=== PATIENT | female | born 1985 | race Hispanic/Latino ===

== ENCOUNTER 2023-02-04 05:29 | Emergency (ER) | payer MEDICAID ==
[~2023-02-04] VITALS: Ht 162.6 cm; Wt 88.9 kg
[2023-02-04 05:55] VITALS: BP 158/74
[2023-02-04] MEDS ORDERED: KETOROLAC 60 MG VIAL (30MG/ML) IM ONE (06:00)
== END 2023-02-04 06:35 | disposition home or self-care (01) ==
LOC: EDH 05:29
DX: H92.03 Otalgia, bilateral (principal); F41.9 Anxiety disorder, unspecified; M19.90 Unspecified osteoarthritis, unspecified site; I11.0 Hypertensive heart disease with heart failure; I50.9 Heart failure, unspecified; E11.9 Type 2 diabetes mellitus without complications; E78.00 Pure hypercholesterolemia, unspecified; Z91.040 Latex allergy status
CPT/HCPCS: 99283; 96372; J1885

== ENCOUNTER 2023-02-24 15:25 | Emergency (ER) | payer MEDICAID ==
[~2023-02-24] VITALS: Ht 162.6 cm; Wt 86.2 kg
[2023-02-24 16:23] LABS: BASOPHILS % (AUTO) 0.4 % (0.0-5.0); EOSINOPHILS % (AUTO) 1.6 % (0.0-8.0); HEMATOCRIT 32.2 % (36-48); LYMPHOCYTES % (AUTO) 23.5 % (21.0-51.0); MEAN CORPUSCULAR HEMOGLOBIN 26.2 pg (27.0-33.0); MEAN CORPUSCULAR HGB CONC 31.7 g/dL (32.0-36.0); MEAN CORPUSCULAR VOLUME 82.8 fL (79-99); MONOCYTES % (AUTO) 4.9 % (3.0-13.0); NEUTROPHILS % (AUTO) 68.5 % (40.0-77.0); PLATELET COUNT (AUTO) 412 K/uL (130-400); RED BLOOD CELL COUNT(AUTO) 3.89 MIL/uL (4.00-5.50); RED CELL DISTRIBUTION WIDTH 13.9 % (11.0-15.5); WHITE BLOOD COUNT (AUTO) 10.6 K/uL (4.8-10.8)
[2023-02-24 16:35] LABS: INR 0.93 (0.85-1.15); PROTHROMBIN TIME 9.5 SEC (9.6-11.6)
[2023-02-24 16:36] LABS: CREATININE 1.9 mg/dL (0.5-1.5); PARTIAL THROMBOPLASTIN TIME 25.5 SEC (26.3-35.5); POTASSIUM 5.3 mmol/L (3.5-5.1)
[2023-02-24 16:41] LABS: ALBUMIN 1.9 g/dL (3.5-5.0); TOTAL PROTEIN, SERUM 6.8 g/dL (6.0-8.3)
[2023-02-24] MEDS ORDERED: 0.9%NACL 1000ML 1,000 ML IV ONE ×2 (17:00→20:30)
[2023-02-24] MEDS ORDERED: INSULIN HUMULIN R 100 UNIT/ML 3ML IV ONE (17:00)
[2023-02-24 17:26] LABS: ERYTHROCYTE SEDIMENTATION RATE 118 MM/HR (0-20)
[2023-02-24 21:23] VITALS: BP 163/79
[2023-02-24 22:00] LABS: CREATININE 1.8 mg/dL (0.5-1.5); POTASSIUM 4.2 mmol/L (3.5-5.1)
[2023-02-24] MEDS ORDERED: CLIN-141 PO (22:12)
== END 2023-02-24 22:34 | disposition home or self-care (01) ==
LOC: EDH 15:25
DX: E86.0 Dehydration (principal); E11.65 Type 2 diabetes mellitus with hyperglycemia; S91.302A Unspecified open wound, left foot, initial encounter; F41.9 Anxiety disorder, unspecified; I11.0 Hypertensive heart disease with heart failure; I50.9 Heart failure, unspecified; E78.00 Pure hypercholesterolemia, unspecified; M19.90 Unspecified osteoarthritis, unspecified site; Z91.040 Latex allergy status; X58.XXXA Exposure to other specified factors, initial encounter; Y93.89 Activity, other specified; Y92.89 Other specified places as the place of occurrence of the external cause; Y99.8 Other external cause status
CPT/HCPCS: 99285; 96374; 93971; 96361; 82550; 84484; 80053; 85025; 85610; 85730; 85651; 87040 ×2; 82948; 83605; 36415; 93005; 80048; J1815; J7030 ×2; 87088

== ENCOUNTER 2024-04-08 11:57 | Emergency (ER) | payer MEDICAID ==
[~2024-04-08] VITALS: Ht 162.6 cm; Wt 72.6 kg
[~2024-04-08 11:57] MED LIST: CLIN-141 PO
[2024-04-08 11:59] VITALS: BP 150/83; PULSE 92; RESP 18
== END 2024-04-08 14:22 | disposition left against medical advice (07) ==
LOC: EDH 11:57
DX: E16.2 Hypoglycemia, unspecified (principal); Z53.21 Procedure and treatment not carried out due to patient leaving prior to being seen by health care provider
CPT/HCPCS: 99281

== ENCOUNTER 2024-04-09 21:48 | Inpatient (IN) | payer MEDICAID ==
[~2024-04-09] VITALS: Ht 162.6 cm; Wt 69.7 kg
[2024-04-09 22:26] LABS: BASOPHILS # (AUTO) 0.04 K/uL (0.00-0.20); BASOPHILS % (AUTO) 0.4 % (0.0-5.0); EOSINOPHILS # (AUTO) 0.24 K/uL (0.00-0.70); EOSINOPHILS % (AUTO) 2.2 % (0.0-8.0); HEMATOCRIT 31.8 % (36-48); IMMATURE GRANULOCYTE ABSOLUTE 0.05 K/uL (0-1); LYMPHOCYTES # (AUTO) 1.4 K/uL (1.0-4.8); LYMPHOCYTES % (AUTO) 12.5 % (21.0-51.0); MEAN CORPUSCULAR HEMOGLOBIN 26.6 pg (27.0-33.0); MEAN CORPUSCULAR HGB CONC 31.8 g/dL (32.0-36.0); MEAN CORPUSCULAR VOLUME 83.9 fL (79-99); MONOCYTES # (AUTO) 0.5 K/uL (0.1-1.0); MONOCYTES % (AUTO) 4.3 % (3.0-13.0); NEUTROPHILS # (AUTO) 8.7 K/uL (1.8-7.7); NEUTROPHILS % (AUTO) 80.1 % (40.0-77.0); PLATELET COUNT (AUTO) 346 K/uL (130-400); RED BLOOD CELL COUNT(AUTO) 3.79 MIL/uL (4.00-5.50); RED CELL DISTRIBUTION WIDTH 17.1 % (11.0-15.5); WHITE BLOOD COUNT (AUTO) 10.8 K/uL (4.8-10.8)
[2024-04-09 22:56] LABS: B-TYPE NATRIURETIC PEPTIDE 372 pg/mL (0-100)
[2024-04-09 23:22] LABS: ALBUMIN 1.6 g/dL (3.5-5.0); BILIRUBIN,DIRECT 0.1 mg/dL (0.0-0.3); BILIRUBIN,TOTAL 0.1 mg/dL (0.2-1.0); CREATININE 3.3 mg/dL (0.5-1.0); POTASSIUM 4.1 mmol/L (3.5-5.1); TOTAL PROTEIN, SERUM 5.7 g/dL (6.0-8.3)
[2024-04-10] MEDS ORDERED: DEXTROSE 50%-WATER 50 ML DISP.SYRIN IV PRN (01:30)
[2024-04-10] MEDS ORDERED: GLUCAGON 1MG KIT 1 MG ML IM PRN (01:30)
[2024-04-10] MEDS ORDERED: ACETAMINOPHEN 325 MG TAB PO PRN (01:30)
[2024-04-10] MEDS: ONDANSETRON 4MG INJ IVP ONE (01:37)
[2024-04-10] MEDS: PANTOPRAZOLE 40 MG/VIAL IVP ONE (01:37)
[2024-04-10] MEDS: 0.9%NACL 1000ML 1,000 ML IV ONE (01:37)
[2024-04-10] MEDS: MORPHINE 4 MG SYG IVP ONE (01:38)
[2024-04-10 03:18] LABS: BASOPHILS # (AUTO) 0.05 K/uL (0.00-0.20); BASOPHILS % (AUTO) 0.4 % (0.0-5.0); EOSINOPHILS % (AUTO) 2.6 % (0.0-8.0); HEMATOCRIT 32.3 % (36-48); IMMATURE GRANULOCYTE ABSOLUTE 0.08 K/uL (0-1); LYMPHOCYTES # (AUTO) 2.1 K/uL (1.0-4.8); LYMPHOCYTES % (AUTO) 18.4 % (21.0-51.0); MEAN CORPUSCULAR HEMOGLOBIN 27.4 pg (27.0-33.0); MEAN CORPUSCULAR HGB CONC 32.5 g/dL (32.0-36.0); MEAN CORPUSCULAR VOLUME 84.3 fL (79-99); MONOCYTES # (AUTO) 0.6 K/uL (0.1-1.0); NEUTROPHILS # (AUTO) 8.4 K/uL (1.8-7.7); NEUTROPHILS % (AUTO) 72.9 % (40.0-77.0); PLATELET COUNT (AUTO) 331 K/uL (130-400); RED BLOOD CELL COUNT(AUTO) 3.83 MIL/uL (4.00-5.50); WHITE BLOOD COUNT (AUTO) 11.5 K/uL (4.8-10.8)
[2024-04-10 03:38] LABS: ALBUMIN 1.6 g/dL (3.5-5.0); BILIRUBIN,TOTAL 0.1 mg/dL (0.2-1.0); CREATININE 3.2 mg/dL (0.5-1.0); MAGNESIUM 1.7 mg/dL (1.80-2.40); POTASSIUM 4.2 mmol/L (3.5-5.1); TOTAL PROTEIN, SERUM 5.6 g/dL (6.0-8.3)
[2024-04-10 04:48] LABS: ERYTHROCYTE SEDIMENTATION RATE 70 MM/HR (0-20)
[2024-04-10 05:32] LABS: APPEARANCE,URINE CLEAR (CLEAR); BILIRUBIN,URINE NEGATIVE (NEGATIVE); COLOR,URINE COLORLESS (YELLOW); GLUCOSE, URINE (UA) >=1000 mg/dL (NEGATIVE); KETONES,URINE NEGATIVE (NEGATIVE); LEUKOCYTE ESTERASE ,URINE NEGATIVE Leu/uL (NEGATIVE); NITRATE,URINE NEGATIVE (NEGATIVE); OCCULT BLOOD,URINE MODERATE (NEGATIVE); PH,URINE 6.5 (5.0-8.0); PROTEIN,URINE 300 mg/dL (NEGATIVE); UROBILINOGEN,URINE 0.2 mg/dL (0.2-1.0)
[2024-04-10 05:49] LABS: ADD UA MICROSCOPIC YES
[2024-04-10 05:52] LABS: MUCUS,URINE RARE LPF (None Seen); SQUAMOUS EPITHELIAL CELL,UR RARE /HPF (0-2)
[2024-04-10 05:55] VITALS: BP 192/91; PULSE 89; RESP 18
[2024-04-10 06:16] LABS: HEMOGLOBIN A1C 7.8 % (4.0-6.0)
[2024-04-10] MEDS: INSULIN HUMULIN R 100 UNIT/ML 3ML SQ SCH (07:30)
[2024-04-10 08:00] VITALS: BP 187/85; PULSE 84; RESP 18
[2024-04-10] MEDS ORDERED: HYDR-4060 PO ×2 (08:07)
[2024-04-10] MEDS ORDERED: ATOR40TA71 PO ×2 (08:07)
[2024-04-10] MEDS ORDERED: METO10TA3 PO ×2 (08:07)
[2024-04-10] MEDS ORDERED: CLON1TAB12 PO ×2 (08:07)
[2024-04-10] MEDS ORDERED: SODI650T PO ×2 (08:07)
[2024-04-10] MEDS ORDERED: ARIP10TA54 PO ×2 (08:07)
[2024-04-10] MEDS ORDERED: METO-408 PO ×2 (08:07)
[2024-04-10] MEDS ORDERED: CYCL-309 PO ×2 (08:07)
[2024-04-10] MEDS ORDERED: FLUO40CA49 PO ×2 (08:07)
[2024-04-10] MEDS ORDERED: CEFTRIAXONE 1G VIAL 1 GM in 0.9%NACL 50ML 50 ML IV SCH (09:00)
[2024-04-10] MEDS: CEFTRIAXONE 1G VIAL IVPB SCH (09:24)
[2024-04-10] MEDS: FAMOTIDINE 20MG VIAL IV SCH (09:24)
[2024-04-10 11:29] LABS: AMPHET/METH SCREEN,URINE NEGATIVE (NEGATIVE); BARBITURATE SCREEN, URINE NEGATIVE (NEGATIVE); BENZODIAZEPINES SCREEN,URINE NEGATIVE (NEGATIVE); CANNABINOID SCREEN,URINE NEGATIVE (NEGATIVE); COCAINE SCREEN,URINE NEGATIVE (NEGATIVE); OPIATE SCREEN,URINE NEGATIVE (NEGATIVE); PHENCYCLIDINE SCREEN,URINE NEGATIVE (NEGATIVE)
[2024-04-10 11:47] LABS: PROTEIN,URINE RANDOM 534.1 mg/dL (0-11.9)
[2024-04-10 12:00] VITALS: BP 203/91; PULSE 85; RESP 18
[2024-04-10] MEDS: METOPROLOL TARTRATE 25 MG TAB PO ONE (13:08)
[2024-04-10] MEDS: HYDRALAZINE 20MG/ML VIAL IV PRN (13:27)
[2024-04-10] MEDS: ACETAMINOPHEN 325 MG TAB PO PRN (15:19)
[2024-04-10 16:00] VITALS: BP 145/65; PULSE 77; RESP 18
[2024-04-10 19:00] VITALS: BP 173/80; PULSE 76; RESP 18
[2024-04-10] MEDS: METOPROLOL TARTRATE 25 MG TAB PO SCH (20:02)
[2024-04-10] MEDS: HYDROMORPHONE 0.5 MG SYG (0.5MG/0.5ML) IVP ONE (21:53)
[2024-04-11] VITALS: BP 166/77; PULSE 69; RESP 18
[2024-04-11 04:00] VITALS: BP 197/84; PULSE 70; RESP 18
[2024-04-11] MEDS: ONDANSETRON 4MG INJ IV PRN (04:32)
[2024-04-11 04:46] LABS: BASOPHILS # (AUTO) 0.04 K/uL (0.00-0.20); BASOPHILS % (AUTO) 0.4 % (0.0-5.0); EOSINOPHILS # (AUTO) 0.51 K/uL (0.00-0.70); EOSINOPHILS % (AUTO) 5.6 % (0.0-8.0); HEMATOCRIT 33.3 % (36-48); IMMATURE GRANULOCYTE ABSOLUTE 0.05 K/uL (0-1); LYMPHOCYTES # (AUTO) 1.8 K/uL (1.0-4.8); MEAN CORPUSCULAR HEMOGLOBIN 27.3 pg (27.0-33.0); MEAN CORPUSCULAR HGB CONC 31.5 g/dL (32.0-36.0); MEAN CORPUSCULAR VOLUME 86.5 fL (79-99); MONOCYTES # (AUTO) 0.4 K/uL (0.1-1.0); MONOCYTES % (AUTO) 4.4 % (3.0-13.0); NEUTROPHILS # (AUTO) 6.2 K/uL (1.8-7.7); PLATELET COUNT (AUTO) 347 K/uL (130-400); RED BLOOD CELL COUNT(AUTO) 3.85 MIL/uL (4.00-5.50); RED CELL DISTRIBUTION WIDTH 16.9 % (11.0-15.5)
[2024-04-11 05:26] LABS: % IRON SATURATION 35.4 % (22-44)
[2024-04-11 05:28] LABS: PHOSPHORUS 4.5 mg/dL (2.5-4.9); POTASSIUM 4.2 mmol/L (3.5-5.1)
[2024-04-11 07:22] VITALS: O2SAT 98
[2024-04-11 08:30] VITALS: BP 156/72; PULSE 78; RESP 20
[2024-04-11] MEDS: AMLODIPINE 5 MG TAB PO ONE (10:27)
[2024-04-11 11:35] VITALS: BP 174/78; PULSE 76; RESP 18
[2024-04-11] MEDS ORDERED: AMLO5TAB4 PO ×2 (11:53)
[2024-04-11] MEDS ORDERED: AMOX1TAB16 PO ×2 (11:53)
[2024-04-11] MEDS ORDERED: METO50 PO ×2 (11:53)
[2024-04-11] MEDS ORDERED: METOPROLOL TARTRATE 50 MG TAB PO SCH (21:00)
[2024-04-12] MEDS ORDERED: AMLODIPINE 5 MG TAB PO SCH (09:00)
[2024-04-12] MEDS ORDERED: FAMOTIDINE 20MG VIAL IV SCH (09:00)
== END 2024-04-11 12:35 | disposition home or self-care (01) | DRG 469 ==
LOC: EDH 21:48 → EDHIP 21:49 → 3AH 04-10 05:47
PROVIDERS: ADMIT Hospitalist; ATTEND Hospitalist
DX: N17.9 Acute kidney failure, unspecified (principal); R65.11 Systemic inflammatory response syndrome (SIRS) of non-infectious origin with acute organ dysfunction; D63.1 Anemia in chronic kidney disease; E11.319 Type 2 diabetes mellitus with unspecified diabetic retinopathy without macular edema; I50.9 Heart failure, unspecified; I13.0 Hypertensive heart and chronic kidney disease with heart failure and stage 1 through stage 4 chronic kidney disease, or unspecified chronic kidney disease; E11.22 Type 2 diabetes mellitus with diabetic chronic kidney disease; N39.0 Urinary tract infection, site not specified; F41.0 Panic disorder [episodic paroxysmal anxiety]; E11.42 Type 2 diabetes mellitus with diabetic polyneuropathy; Z59.00 Homelessness unspecified; N18.9 Chronic kidney disease, unspecified; K52.9 Noninfective gastroenteritis and colitis, unspecified; K31.84 Gastroparesis; H54.8 Legal blindness, as defined in USA; E78.00 Pure hypercholesterolemia, unspecified; E11.65 Type 2 diabetes mellitus with hyperglycemia; E11.43 Type 2 diabetes mellitus with diabetic autonomic (poly)neuropathy; Z79.899 Other long term (current) drug therapy
CPT/HCPCS: 36415; 71045; 74176; 76770; 80048; 80053; 80076; 80305; 81001; 82550; 82570; 82948; 83036; 83540; 83550; 83690; 83735; 83880; 83970; 84100; 84156; 84484; 84703; 85025; 85651; 87086; 87186; 93005; G0378; J0360; J0696; J1170; J1815; J2270; J2405; J2470; J3490; J7030

== ENCOUNTER 2024-04-18 17:14 | Emergency (ER) | payer MEDICAID ==
[~2024-04-18] VITALS: Ht 162.6 cm; Wt 68.0 kg
[~2024-04-18 17:14] MED LIST changes: +AMLO5TAB4 PO; +AMOX1TAB16 PO; +ARIP10TA54 PO; +ATOR40TA71 PO; -CLIN-141 PO; +CLON1TAB12 PO; +CYCL-309 PO; +FLUO40CA49 PO; +HYDR-4060 PO; +METO10TA3 PO; +METO50 PO; +SODI650T PO
[2024-04-18] MEDS: KETOROLAC 60 MG VIAL (30MG/ML) IM ONE (18:07)
[2024-04-18] MEDS: acetaMINOPHEN 500 MG TABLET PO ONE (18:08)
[2024-04-18] MEDS ORDERED: BUTA-271 PO (19:42)
[2024-04-18 19:52] VITALS: BP 153/52; PULSE 87; RESP 18; O2SAT 100
== END 2024-04-18 19:56 | disposition home or self-care (01) ==
LOC: EDH 17:14
DX: G44.209 Tension-type headache, unspecified, not intractable (principal); E11.9 Type 2 diabetes mellitus without complications; I11.0 Hypertensive heart disease with heart failure; I50.9 Heart failure, unspecified; Z98.890 Other specified postprocedural states; Z91.040 Latex allergy status; Z79.2 Long term (current) use of antibiotics; Z79.899 Other long term (current) drug therapy
CPT/HCPCS: 99285; 70450; 96372; J1885

== ENCOUNTER 2024-04-29 12:42 | Inpatient (IN) | payer MEDICAID ==
[~2024-04-29] VITALS: Ht 162.6 cm; Wt 66.8 kg
[~2024-04-29 12:42] MED LIST changes: +BUTA-271 PO
[2024-04-29 13:19] LABS: BASOPHILS # (AUTO) 0.02 K/uL (0.00-0.20); BASOPHILS % (AUTO) 0.2 % (0.0-5.0); EOSINOPHILS # (AUTO) 0.51 K/uL (0.00-0.70); EOSINOPHILS % (AUTO) 5.4 % (0.0-8.0); HEMATOCRIT 32.2 % (36-48); IMMATURE GRANULOCYTE ABSOLUTE 0.04 K/uL (0-1); LYMPHOCYTES # (AUTO) 1.2 K/uL (1.0-4.8); LYMPHOCYTES % (AUTO) 12.9 % (21.0-51.0); MEAN CORPUSCULAR HEMOGLOBIN 27.4 pg (27.0-33.0); MEAN CORPUSCULAR HGB CONC 34.2 g/dL (32.0-36.0); MEAN CORPUSCULAR VOLUME 80.3 fL (79-99); MONOCYTES # (AUTO) 0.4 K/uL (0.1-1.0); MONOCYTES % (AUTO) 4.7 % (3.0-13.0); NEUTROPHILS # (AUTO) 7.2 K/uL (1.8-7.7); NEUTROPHILS % (AUTO) 76.4 % (40.0-77.0); PLATELET COUNT (AUTO) 264 K/uL (130-400); RED BLOOD CELL COUNT(AUTO) 4.01 MIL/uL (4.00-5.50); RED CELL DISTRIBUTION WIDTH 15.3 % (11.0-15.5); WHITE BLOOD COUNT (AUTO) 9.4 K/uL (4.8-10.8)
[2024-04-29] MEDS: acetaMINOPHEN 500 MG TABLET PO ONE (13:23)
[2024-04-29] MEDS: 0.9%NACL 1000ML 1,000 ML IV ONE ×2 (13:23→14:27)
[2024-04-29 13:34] LABS: ALBUMIN 1.3 g/dL (3.5-5.0); BILIRUBIN,TOTAL 0.2 mg/dL (0.2-1.0); CREATININE 3.6 mg/dL (0.5-1.0); TOTAL PROTEIN, SERUM 5.3 g/dL (6.0-8.3)
[2024-04-29] MEDS: ONDANSETRON 4MG INJ IVP ONE (14:27)
[2024-04-29] MEDS: morPHINE 2 MG SYG IVP ONE (14:28)
[2024-04-29] MEDS: POTASSIUM BICARB/CIT AC 25 MEQ TABLET.EFF PO ONE (14:28)
[2024-04-29] MEDS: POTASSIUM CHLORIDE 10MEQ/100ML 100 ML IV ONE (14:40)
[2024-04-29 14:43] LABS: ABG BASE EXCESS -7.6 mmol/L (-2.0-3.0); ABG HCO3 17.6 mmol/L (21.0-28.0); ABG OXYGEN SATURATION 97.2 % (94.0-98.0); ABG PCO2 36 mmHg (32-45); ABG PH 7.314 (7.350-7.450); PO2, ARTERIAL BG 101.5 mmHg (83.0-108.0); VENT MODE, BG RA (ROOM AIR)
[2024-04-29] MEDS: cefTRIAXone 1G VIAL IVPB ONE (16:20)
[2024-04-29] MEDS ORDERED: PHARMACY COMMUNICATION MISC SCH (16:30)
[2024-04-29 16:46] LABS: INR <= 0.93 (0.85-1.15)
[2024-04-29 16:47] LABS: PARTIAL THROMBOPLASTIN TIME 25.5 SEC (26.3-35.5)
[2024-04-29 16:53] LABS: HEMOGLOBIN A1C 8.5 % (4.0-6.0)
[2024-04-29] MEDS: PHARMACY COMMUNICATION MISC SCH (17:08)
[2024-04-29] MEDS: WATER IV SCH (17:08)
[2024-04-29] MEDS: DEXTROSE 5% IV SCH (17:08)
[2024-04-29] MEDS: SODIUM BICARB IV SCH (17:08)
[2024-04-29 18:05] LABS: APPEARANCE,URINE TURBID (CLEAR); BILIRUBIN,URINE NEGATIVE (NEGATIVE); COLOR,URINE LIGHT-BROWN (YELLOW); GLUCOSE, URINE (UA) >=1000 mg/dL (NEGATIVE); KETONES,URINE 5 mg/dL (NEGATIVE); LEUKOCYTE ESTERASE ,URINE 500 Leu/uL (NEGATIVE); NITRATE,URINE NEGATIVE (NEGATIVE); OCCULT BLOOD,URINE LARGE (NEGATIVE); PROTEIN,URINE 300 mg/dL (NEGATIVE); UROBILINOGEN,URINE 0.2 mg/dL (0.2-1.0)
[2024-04-29 18:06] LABS: ADD UA MICROSCOPIC YES
[2024-04-29 18:09] LABS: BACTERIA,URINE RARE /HPF (None Seen); MUCUS,URINE RARE LPF (None Seen); RBC,URINE TNTC /HPF (0-1); SQUAMOUS EPITHELIAL CELL,UR MOD /HPF (0-2); WBC CLUMP MANY /HPF (0-1); WBC,URINE TNTC /HPF (0-1)
[2024-04-29] MEDS: INSULIN humuLIN R 100 UNIT/ML 3ML SQ SCH (18:15)
[2024-04-29] MEDS: MEROPENEM 500 MG in 0.9%NACL 100ML 100 ML IV SCH (18:41)
[2024-04-29] MEDS: MEROPENEM 500 MG VIAL ONE (18:41)
[2024-04-29 19:13] LABS: CREATININE 2.8 mg/dL (0.5-1.0); POTASSIUM 3.1 mmol/L (3.5-5.1)
[2024-04-29] MEDS: 0.9%NACL 1000ML 1,000 ML IV SCH (20:36)
[2024-04-29] MEDS: FAMOTIDINE 20MG VIAL IV SCH (20:39)
[2024-04-29] MEDS: INSULIN GLARgine 100 UNITS/ML 10 ML VIAL SQ SCH (20:40)
[2024-04-29] MEDS ORDERED: POTASSIUM CHLORIDE 20MEQ/100ML 100 ML IV PRN (21:00)
[2024-04-29] MEDS ORDERED: KCL 20 MEQ ERTAB PO PRN (21:00)
[2024-04-29] MEDS ORDERED: GLUCAGON 1MG KIT 1 MG ML IM PRN (21:00)
[2024-04-29] MEDS: POTASSIUM CHLORIDE 10% ELIXIR 20 MEQ/15 ML UDCUP PO PRN (21:31)
[2024-04-29] MEDS: hydrALAZine 20MG/ML VIAL IV PRN (21:40)
[2024-04-29 21:51] LABS: CREATININE,URINE RANDOM 30.64 mg/dL (30-135)
[2024-04-29 22:30] VITALS: O2SAT 95
[2024-04-29 22:47] VITALS: BP 119/62; PULSE 77; RESP 16; TEMP 98.5
[2024-04-29] MEDS: hydroMORPHone 1 MG INJ IVP ONE (23:09)
[2024-04-29] MEDS: ONDANSETRON 4MG INJ IVP PRN (23:09)
[2024-04-29] MEDS: ONDANSETRON 4MG INJ ONE (23:10)
[2024-04-30] VITALS (7 sets, daily range): BP systolic 103–194; BP diastolic 63–85; PULSE 78–105; RESP 16–20; TEMP 98.5–99.6; O2SAT 96–97
[2024-04-30 00:47] LABS: CREATININE 2.9 mg/dL (0.5-1.0)
[2024-04-30 00:58] LABS: POTASSIUM 2.8 mmol/L (3.5-5.1)
[2024-04-30] MEDS: POTASSIUM CHLORIDE 10MEQ/100ML 100 ML IV PRN (01:15)
[2024-04-30 06:44] LABS: POTASSIUM 3.5 mmol/L (3.5-5.1)
[2024-04-30] MEDS: traMADol HCL 50 MG TABLET PO PRN (07:47)
[2024-04-30] MEDS: amLODIPine 5 MG TAB PO SCH (09:46)
[2024-04-30] MEDS ORDERED: INSU100V12 SQ (10:00)
[2024-04-30] MEDS: KCL 20 MEQ ERTAB PO ONE (12:12)
[2024-04-30] MEDS ORDERED: COMPOUND IV MISC 1 EACH IVSOLN MISC PRN (12:30)
[2024-04-30] MEDS: metoCLOPRAmide 10 MG/2 ML VIAL IVP SCH (14:21)
[2024-04-30] MEDS: morPHINE 2 MG SYG IVP PRN (15:12)
[2024-05-01] VITALS (10 sets, daily range): BP systolic 103–196; BP diastolic 59–95; PULSE 89–109; RESP 18–20; TEMP 98–99.8; O2SAT 96
[2024-05-01 04:11] LABS: HEMATOCRIT 29.1 % (36-48); MEAN CORPUSCULAR HEMOGLOBIN 27.2 pg (27.0-33.0); MEAN CORPUSCULAR HGB CONC 32.6 g/dL (32.0-36.0); MEAN CORPUSCULAR VOLUME 83.4 fL (79-99); RED BLOOD CELL COUNT(AUTO) 3.49 MIL/uL (4.00-5.50); WHITE BLOOD COUNT (AUTO) 9.6 K/uL (4.8-10.8)
[2024-05-01 04:33] LABS: CREATININE 2.9 mg/dL (0.5-1.0); MAGNESIUM 1.8 mg/dL (1.80-2.40); TOTAL PROTEIN, SERUM 4.4 g/dL (6.0-8.3)
[2024-05-01] MEDS: DEXTROSE 50%-WATER 50 ML DISP.SYRIN IV PRN (04:49)
[2024-05-01 04:51] LABS: BILIRUBIN,TOTAL 0.1 mg/dL (0.2-1.0)
[2024-05-01 09:14] LABS: ABG BASE EXCESS -7.5 mmol/L (-2.0-3.0); ABG OXYGEN SATURATION 97.8 % (94.0-98.0); ABG PCO2 32 mmHg (32-45); ABG PH 7.339 (7.350-7.450); DEVICE COMMENT RN RENE LR; PO2, ARTERIAL BG 108.9 mmHg (83.0-108.0); VENT MODE, BG RA (ROOM AIR)
[2024-05-01] MEDS: SODIUM BICARB 50MEQ 50ML VIAL IV ONE (11:51)
[2024-05-02] VITALS (9 sets, daily range): BP systolic 113–190; BP diastolic 66–92; PULSE 76–104; RESP 16–20; TEMP 98.1–99.2; O2SAT 96–99
[2024-05-02] MEDS: hydroMORPHone 0.5 MG SYG (0.5MG/0.5ML) IVP PRN (01:28)
[2024-05-02 04:14] LABS: HEMATOCRIT 30.2 % (36-48); MEAN CORPUSCULAR HEMOGLOBIN 27.5 pg (27.0-33.0); MEAN CORPUSCULAR HGB CONC 32.1 g/dL (32.0-36.0); MEAN CORPUSCULAR VOLUME 85.6 fL (79-99); RED BLOOD CELL COUNT(AUTO) 3.53 MIL/uL (4.00-5.50); RED CELL DISTRIBUTION WIDTH 16.6 % (11.0-15.5); WHITE BLOOD COUNT (AUTO) 10.2 K/uL (4.8-10.8)
[2024-05-02 04:28] LABS: % IRON SATURATION 36.3 % (22-44)
[2024-05-02 04:29] LABS: BILIRUBIN,TOTAL 0.1 mg/dL (0.2-1.0); CREATININE 2.9 mg/dL (0.5-1.0); MAGNESIUM 1.6 mg/dL (1.80-2.40); POTASSIUM 4.3 mmol/L (3.5-5.1); TOTAL PROTEIN, SERUM 4.4 g/dL (6.0-8.3)
[2024-05-02] MEDS: acetaMINOPHEN 500 MG TABLET PO PRN (04:29)
[2024-05-02] MEDS: MAGNESIUM 2GM PREMIX 50ML 50 ML IV ONE (05:58)
[2024-05-02] MEDS: clonazePAM 1MG TAB PO SCH (08:37)
[2024-05-02] MEDS: hydrALAZine 25MG TABLET PO SCH (08:37)
[2024-05-02] MEDS: ARIPIPrazole 5 MG TABLET PO SCH (08:38)
[2024-05-02] MEDS: atorVAStatin 40 MG TABLET PO SCH (08:38)
[2024-05-02] MEDS: SODIUM BICARBONATE 650 MG TAB PO SCH (08:38)
[2024-05-02] MEDS: amLODIPine 5 MG TAB PO SCH (08:38)
[2024-05-02] MEDS: IRON sUCROse COMPLEX 300 MG in 0.9% NACL 250ML 250 ML IV SCH (09:00)
[2024-05-02] MEDS: EPOETIN ALFA-EPBX (NON-ESRD) 10,000 UNIT/ML VIAL SQ ONE (12:13)
[2024-05-02] MEDS: metoPROLOL tartRATE 50 MG TAB PO SCH (12:13)
[2024-05-02] MEDS: FERROUS SULFATE 325 MG TABLET.DR PO SCH (17:11)
[2024-05-02] MEDS: FLUoxetine HCL 20 MG CAPSULE PO SCH (20:06)
[2024-05-03] VITALS (8 sets, daily range): BP systolic 120–165; BP diastolic 67–83; PULSE 70–88; RESP 16–18; TEMP 97–98.6; O2SAT 98–99
[2024-05-03 03:36] LABS: BASOPHILS # (AUTO) 0.02 K/uL (0.00-0.20); BASOPHILS % (AUTO) 0.2 % (0.0-5.0); EOSINOPHILS # (AUTO) 0.44 K/uL (0.00-0.70); HEMATOCRIT 31.5 % (36-48); IMMATURE GRANULOCYTE ABSOLUTE 0.05 K/uL (0-1); LYMPHOCYTES # (AUTO) 2.2 K/uL (1.0-4.8); MEAN CORPUSCULAR HEMOGLOBIN 27.1 pg (27.0-33.0); MEAN CORPUSCULAR HGB CONC 30.8 g/dL (32.0-36.0); MONOCYTES # (AUTO) 0.5 K/uL (0.1-1.0); MONOCYTES % (AUTO) 5.5 % (3.0-13.0); NEUTROPHILS # (AUTO) 5.6 K/uL (1.8-7.7); NEUTROPHILS % (AUTO) 63.7 % (40.0-77.0); PLATELET COUNT (AUTO) 233 K/uL (130-400); RED BLOOD CELL COUNT(AUTO) 3.58 MIL/uL (4.00-5.50); RED CELL DISTRIBUTION WIDTH 16.5 % (11.0-15.5); WHITE BLOOD COUNT (AUTO) 8.8 K/uL (4.8-10.8)
[2024-05-03 03:47] LABS: CREATININE 3.1 mg/dL (0.5-1.0); MAGNESIUM 2.2 mg/dL (1.80-2.40); PHOSPHORUS 4.2 mg/dL (2.5-4.9)
[2024-05-03 17:17] LABS: ABG BASE EXCESS -10.5 mmol/L (-2.0-3.0); ABG HCO3 14.3 mmol/L (21.0-28.0); ABG OXYGEN SATURATION 97.8 % (94.0-98.0); ABG PCO2 29 mmHg (32-45); ABG PH 7.318 (7.350-7.450); CARBON MONOXIDE 0.3 % (0.5-1.5); HHb 2.2; PO2, ARTERIAL BG 118.3 mmHg (83.0-108.0); VENT MODE, BG RA (ROOM AIR)
[2024-05-04] VITALS: BP 142/78; PULSE 74; RESP 16; TEMP 98.7
[2024-05-04 03:54] VITALS: BP 131/64; PULSE 68; RESP 16; TEMP 98.1
[2024-05-04 06:50] LABS: BASOPHILS # (AUTO) 0.03 K/uL (0.00-0.20); BASOPHILS % (AUTO) 0.4 % (0.0-5.0); EOSINOPHILS # (AUTO) 0.38 K/uL (0.00-0.70); EOSINOPHILS % (AUTO) 4.9 % (0.0-8.0); HEMATOCRIT 30.2 % (36-48); IMMATURE GRANULOCYTE ABSOLUTE 0.05 K/uL (0-1); LYMPHOCYTES % (AUTO) 25.8 % (21.0-51.0); MEAN CORPUSCULAR HEMOGLOBIN 27.5 pg (27.0-33.0); MEAN CORPUSCULAR HGB CONC 32.1 g/dL (32.0-36.0); MEAN CORPUSCULAR VOLUME 85.6 fL (79-99); MONOCYTES # (AUTO) 0.5 K/uL (0.1-1.0); MONOCYTES % (AUTO) 6.6 % (3.0-13.0); NEUTROPHILS # (AUTO) 4.8 K/uL (1.8-7.7); NEUTROPHILS % (AUTO) 61.7 % (40.0-77.0); PLATELET COUNT (AUTO) 228 K/uL (130-400); RED BLOOD CELL COUNT(AUTO) 3.53 MIL/uL (4.00-5.50); RED CELL DISTRIBUTION WIDTH 16.5 % (11.0-15.5); WHITE BLOOD COUNT (AUTO) 7.7 K/uL (4.8-10.8)
[2024-05-04 07:00] LABS: CREATININE 3.3 mg/dL (0.5-1.0); POTASSIUM 4.3 mmol/L (3.5-5.1)
[2024-05-04 07:58] VITALS: BP 130/70; PULSE 70; RESP 19; TEMP 98.2
[2024-05-04 08:00] VITALS: O2SAT 97
[2024-05-04] MEDS ORDERED: HYDR25 PO (10:07)
[2024-05-04] MEDS: clonazePAM 1MG TAB PO PRN (10:09)
[2024-05-04 12:00] VITALS: BP 108/56; PULSE 68; RESP 17; TEMP 97.8
== END 2024-05-04 14:00 | disposition home or self-care (01) | DRG 463 ==
LOC: EDH 12:42 → EDHIP 12:43 → UNDOADMIN 16:27 → EDHIP 16:27 → 2AH 22:30 → 3CH 05-04 → 3AH 05-04 06:16
PROVIDERS: ADMIT Internal Medicine; ATTEND Internal Medicine
DX: N12 Tubulo-interstitial nephritis, not specified as acute or chronic (principal); E11.10 Type 2 diabetes mellitus with ketoacidosis without coma; N17.9 Acute kidney failure, unspecified; E11.22 Type 2 diabetes mellitus with diabetic chronic kidney disease; N30.80 Other cystitis without hematuria; E11.319 Type 2 diabetes mellitus with unspecified diabetic retinopathy without macular edema; B96.1 Klebsiella pneumoniae [K. pneumoniae] as the cause of diseases classified elsewhere; D64.9 Anemia, unspecified; N18.4 Chronic kidney disease, stage 4 (severe); K80.20 Calculus of gallbladder without cholecystitis without obstruction; E11.43 Type 2 diabetes mellitus with diabetic autonomic (poly)neuropathy; K31.84 Gastroparesis; E11.65 Type 2 diabetes mellitus with hyperglycemia; F32.A Depression, unspecified; F41.9 Anxiety disorder, unspecified; I12.9 Hypertensive chronic kidney disease with stage 1 through stage 4 chronic kidney disease, or unspecified chronic kidney disease; E78.00 Pure hypercholesterolemia, unspecified; E87.6 Hypokalemia; H40.9 Unspecified glaucoma; K82.8 Other specified diseases of gallbladder; Z16.12 Extended spectrum beta lactamase (ESBL) resistance; Z16.24 Resistance to multiple antibiotics; E66.01 Morbid (severe) obesity due to excess calories; H54.3 Unqualified visual loss, both eyes; E86.0 Dehydration; Z79.4 Long term (current) use of insulin; Z83.3 Family history of diabetes mellitus; Z91.199 Patient's noncompliance with other medical treatment and regimen due to unspecified reason; Z98.891 History of uterine scar from previous surgery; Z91.128 Patient's intentional underdosing of medication regimen for other reason; Z79.899 Other long term (current) drug therapy; Z88.8 Allergy status to other drugs, medicaments and biological substances; Z68.25 Body mass index [BMI] 25.0-25.9, adult
CPT/HCPCS: 36415; 36600; 70450; 71045; 74176; 76705; 78226; 80048; 80053; 81001; 82010; 82140; 82435; 82570; 82803; 82947; 82948; 83036; 83540; 83550; 83605; 83690; 83735; 84100; 84132; 84145; 84295; 84300; 84443; 84478; 84484; 84703; 85018; 85025; 85027; 85610; 85730; 87040; 87086; 87186; 93005; A9537; G0378; J0360; J0696; J1170; J1756; J1815; J2185; J2270; J2405; J2765; J3475; J3480; J3490; J7030; J7050; J7070; Q5106

== ENCOUNTER 2024-05-04 21:13 | Emergency (ER) | payer OTHER, MEDICARE ==
[~2024-05-04] VITALS: Ht 154.9 cm; Wt 65.8 kg
[~2024-05-04 21:13] MED LIST changes: +HYDR25 PO; +INSU100V12 SQ
[2024-05-04 21:48] VITALS: TEMP 98.8
[2024-05-04 22:01] LABS: BASOPHILS # (AUTO) 0.05 K/uL (0.00-0.20); BASOPHILS % (AUTO) 0.5 % (0.0-5.0); EOSINOPHILS # (AUTO) 0.25 K/uL (0.00-0.70); EOSINOPHILS % (AUTO) 2.5 % (0.0-8.0); IMMATURE GRANULOCYTE ABSOLUTE 0.06 K/uL (0-1); LYMPHOCYTES # (AUTO) 1.5 K/uL (1.0-4.8); MEAN CORPUSCULAR HEMOGLOBIN 27.4 pg (27.0-33.0); MEAN CORPUSCULAR HGB CONC 31.9 g/dL (32.0-36.0); MEAN CORPUSCULAR VOLUME 85.9 fL (79-99); MONOCYTES # (AUTO) 0.6 K/uL (0.1-1.0); MONOCYTES % (AUTO) 5.7 % (3.0-13.0); NEUTROPHILS # (AUTO) 7.6 K/uL (1.8-7.7); NEUTROPHILS % (AUTO) 75.7 % (40.0-77.0); PLATELET COUNT (AUTO) 260 K/uL (130-400); RED BLOOD CELL COUNT(AUTO) 3.61 MIL/uL (4.00-5.50); RED CELL DISTRIBUTION WIDTH 16.5 % (11.0-15.5); WHITE BLOOD COUNT (AUTO) 10.1 K/uL (4.8-10.8)
[2024-05-04 22:11] LABS: CARBON DIOXIDE 19 mmol/L (21-32); CHLORIDE 110 mmol/L (101-111); CREATININE 3.5 mg/dL (0.5-1.0); GLOMERULAR FILTR. RATE CALC 16 mL/min (>90); GLUCOSE,RANDOM 229 mg/dL (70-105); POTASSIUM 5.3 mmol/L (3.5-5.1); SODIUM SERUM 138 mmol/L (136-145); UREA NITROGEN, BLOOD 25 mg/dL (7-18)
[2024-05-04 22:21] LABS: ALCOHOL, BLOOD < 3 mg/dL (0-10); CREATINE KINASE, TOTAL 42 U/L (21-232)
[2024-05-04 23:14] VITALS: PULSE 81
[2024-05-04 23:27] LABS: APPEARANCE,URINE CLOUDY (CLEAR); BILIRUBIN,URINE NEGATIVE (NEGATIVE); COLOR,URINE LIGHT-YELLOW (YELLOW); GLUCOSE, URINE (UA) 300 mg/dL (NEGATIVE); KETONES,URINE NEGATIVE (NEGATIVE); LEUKOCYTE ESTERASE ,URINE 500 Leu/uL (NEGATIVE); NITRATE,URINE NEGATIVE (NEGATIVE); PROTEIN,URINE 300 mg/dL (NEGATIVE); UROBILINOGEN,URINE 0.2 mg/dL (0.2-1.0)
[2024-05-04 23:29] LABS: ADD UA MICROSCOPIC YES
[2024-05-04 23:30] LABS: BACTERIA,URINE RARE /HPF (None Seen); RBC,URINE 26-50 /HPF (0-1); WBC,URINE >100 /HPF (0-1)
[2024-05-05 01:25] VITALS: BP 145/68; RESP 18; O2SAT 98
[2024-05-05] MEDS: cefTRIAXone 1G VIAL IVPB ONE (01:28)
== END 2024-05-05 01:46 | disposition left against medical advice (07) ==
LOC: EDH 21:13
DX: N39.0 Urinary tract infection, site not specified (principal); R14.0 Abdominal distension (gaseous); R53.1 Weakness; Z91.040 Latex allergy status; Z79.899 Other long term (current) drug therapy; Z79.4 Long term (current) use of insulin
CPT/HCPCS: 99285; 82550; 84484; 80048; 82140; 85025; 87040; 87086; 83605; 81001; 36415; 93005; 96365; J0696

== ENCOUNTER 2024-05-09 18:12 | Emergency (ER) | payer OTHER, MEDICARE ==
[~2024-05-09] VITALS: Ht 162.6 cm; Wt 64.9 kg
[~2024-05-09 18:12] MED LIST changes: -AMOX1TAB16 PO; -CYCL-309 PO; -HYDR-4060 PO
[2024-05-09 18:14] VITALS: BP 180/93; PULSE 88; RESP 16; TEMP 98.3
[2024-05-09 18:48] LABS: RAPID GROUP A STREP negative (NEGATIVE)
[2024-05-09 18:52] LABS: SARS-CoV-2, RNA, NAAT NEGATIVE SARS CoV-2 (NEGATIVE)
[2024-05-09 18:58] LABS: INFLUENZA TYPE A Negative For Type A (NEGATIVE); INFLUENZA TYPE B Negative For Type B (NEGATIVE)
[2024-05-09] MEDS ORDERED: BROM118S48 PO (19:37)
== END 2024-05-09 19:49 | disposition home or self-care (01) ==
LOC: EDH 18:12
DX: B34.9 Viral infection, unspecified (principal); E11.9 Type 2 diabetes mellitus without complications; E78.00 Pure hypercholesterolemia, unspecified; I10 Essential (primary) hypertension; Z20.822 Contact with and (suspected) exposure to COVID-19; Z79.4 Long term (current) use of insulin; Z79.899 Other long term (current) drug therapy; Z91.040 Latex allergy status; Z98.890 Other specified postprocedural states
CPT/HCPCS: 87635; 87804; 87880

== ENCOUNTER 2024-05-20 20:34 | Observation (INO) | payer OTHER, MEDICARE ==
[~2024-05-20] VITALS: Ht 162.6 cm; Wt 70.7 kg
[~2024-05-20 20:34] MED LIST changes: +BROM118S48 PO
[2024-05-20 21:12] LABS: BASOPHILS # (AUTO) 0.01 K/uL (0.00-0.20); BASOPHILS % (AUTO) 0.1 % (0.0-5.0); EOSINOPHILS # (AUTO) 0.18 K/uL (0.00-0.70); EOSINOPHILS % (AUTO) 2.6 % (0.0-8.0); HEMATOCRIT 32.1 % (36-48); IMMATURE GRANULOCYTE ABSOLUTE 0.02 K/uL (0-1); LYMPHOCYTES # (AUTO) 1.1 K/uL (1.0-4.8); LYMPHOCYTES % (AUTO) 16.2 % (21.0-51.0); MEAN CORPUSCULAR HEMOGLOBIN 27.8 pg (27.0-33.0); MEAN CORPUSCULAR HGB CONC 31.8 g/dL (32.0-36.0); MEAN CORPUSCULAR VOLUME 87.5 fL (79-99); MONOCYTES # (AUTO) 0.3 K/uL (0.1-1.0); MONOCYTES % (AUTO) 4.4 % (3.0-13.0); NEUTROPHILS # (AUTO) 5.2 K/uL (1.8-7.7); NEUTROPHILS % (AUTO) 76.4 % (40.0-77.0); PLATELET COUNT (AUTO) 275 K/uL (130-400); RED BLOOD CELL COUNT(AUTO) 3.67 MIL/uL (4.00-5.50); RED CELL DISTRIBUTION WIDTH 15.7 % (11.0-15.5); WHITE BLOOD COUNT (AUTO) 6.8 K/uL (4.8-10.8)
[2024-05-20 21:25] LABS: INR 0.95 (0.85-1.15); PROTHROMBIN TIME 10.3 SEC (9.6-11.6)
[2024-05-20 21:26] LABS: PARTIAL THROMBOPLASTIN TIME 26.7 SEC (26.3-35.5)
[2024-05-20 21:31] LABS: CREATININE 3.1 mg/dL (0.5-1.0); POTASSIUM 4.1 mmol/L (3.5-5.1)
[2024-05-20 21:50] LABS: B-TYPE NATRIURETIC PEPTIDE 1040 pg/mL (0-100)
[2024-05-20 22:28] LABS: ABG BASE EXCESS -8.7 mmol/L (-2.0-3.0); ABG HCO3 15.9 mmol/L (21.0-28.0); ABG OXYGEN SATURATION 97.5 % (94.0-98.0); ABG PCO2 30 mmHg (32-45); ABG PH 7.337 (7.350-7.450); CARBON MONOXIDE 0.3 % (0.5-1.5); DEVICE COMMENT RR PAULRN; HHb 2.5; PO2, ARTERIAL BG 102.9 mmHg (83.0-108.0); VENT MODE, BG RA (ROOM AIR)
[2024-05-20 22:46] LABS: ALANINE AMINOTRANSFERASE 10 U/L (12-78); ASPARTATE AMINOTRANSFERASE 13 U/L (10-37); TOTAL PROTEIN, SERUM 4.8 g/dL (6.0-8.3)
[2024-05-20 23:08] LABS: BILIRUBIN,DIRECT < 0.1 mg/dL (0.0-0.3)
[2024-05-20 23:09] LABS: BILIRUBIN,TOTAL 0.1 mg/dL (0.2-1.0)
[2024-05-20] MEDS: acetaMINOPHEN 500 MG TABLET PO ONE (23:43)
[2024-05-20] MEDS: INSULIN humuLIN R 100 UNIT/ML 3ML IV ONE (23:44)
[2024-05-21] MEDS ORDERED: DEXTROSE 50%-WATER 50 ML DISP.SYRIN IV PRN (03:00)
[2024-05-21] MEDS ORDERED: hydrALAZine 20MG/ML VIAL IV PRN (03:00)
[2024-05-21] MEDS ORDERED: ondanSETRON 4MG INJ IV PRN (03:00)
[2024-05-21] MEDS ORDERED: acetaMINOPHEN 325 MG TAB PO PRN ×2 (03:00)
[2024-05-21] MEDS ORDERED: NITROGLYCERIN 0.4 MG SL TAB SL PRN (03:00)
[2024-05-21] MEDS ORDERED: GLUCAGON 1MG KIT 1 MG ML IM PRN (03:00)
[2024-05-21] MEDS: NITROGLYCERIN 1GM OINT 1 INCH/1GM TD ONE (03:56)
[2024-05-21] MEDS: FAMOTIDINE 20MG TAB PO SCH (03:57)
[2024-05-21] MEDS: LAbetaLOL 20MG SYG IV ONE (03:57)
[2024-05-21] MEDS: hydroMORPHone 0.5 MG SYG (0.5MG/0.5ML) IVP ONE (05:00)
[2024-05-21 05:50] VITALS: BP 105/63; PULSE 83; RESP 18; TEMP 97.8
[2024-05-21 05:57] LABS: BASOPHILS # (AUTO) 0.02 K/uL (0.00-0.20); BASOPHILS % (AUTO) 0.3 % (0.0-5.0); EOSINOPHILS # (AUTO) 0.19 K/uL (0.00-0.70); EOSINOPHILS % (AUTO) 2.7 % (0.0-8.0); HEMATOCRIT 29.2 % (36-48); IMMATURE GRANULOCYTE ABSOLUTE 0.03 K/uL (0-1); LYMPHOCYTES # (AUTO) 1.9 K/uL (1.0-4.8); LYMPHOCYTES % (AUTO) 26.8 % (21.0-51.0); MEAN CORPUSCULAR HEMOGLOBIN 27.9 pg (27.0-33.0); MEAN CORPUSCULAR HGB CONC 32.2 g/dL (32.0-36.0); MEAN CORPUSCULAR VOLUME 86.6 fL (79-99); MONOCYTES # (AUTO) 0.5 K/uL (0.1-1.0); MONOCYTES % (AUTO) 6.8 % (3.0-13.0); NEUTROPHILS # (AUTO) 4.4 K/uL (1.8-7.7); PLATELET COUNT (AUTO) 244 K/uL (130-400); RED BLOOD CELL COUNT(AUTO) 3.37 MIL/uL (4.00-5.50); RED CELL DISTRIBUTION WIDTH 15.5 % (11.0-15.5); WHITE BLOOD COUNT (AUTO) 7.1 K/uL (4.8-10.8)
[2024-05-21 06:19] LABS: B-TYPE NATRIURETIC PEPTIDE 604 pg/mL (0-100)
[2024-05-21 06:26] LABS: ALBUMIN 0.9 g/dL (3.5-5.0); BILIRUBIN,TOTAL 0.1 mg/dL (0.2-1.0); MAGNESIUM 1.6 mg/dL (1.80-2.40); POTASSIUM 3.7 mmol/L (3.5-5.1); TOTAL PROTEIN, SERUM 4.4 g/dL (6.0-8.3)
[2024-05-21 08:00] VITALS: BP 126/67; PULSE 85; RESP 18; TEMP 98.2; O2SAT 99
[2024-05-21] MEDS: ASPIRIN 81 MG EC TAB PO SCH (09:15)
[2024-05-21] MEDS ORDERED: PoTASSium chloRIDE 20MEQ/100ML 100 ML IV PRN (09:30)
[2024-05-21] MEDS ORDERED: MAGNESIUM 2GM PREMIX 50ML 50 ML IV PRN (09:30)
[2024-05-21] MEDS ORDERED: ACET-2079 PO (11:23)
[2024-05-21 12:00] VITALS: BP 138/71; PULSE 97; RESP 18; TEMP 97.9
[2024-05-21] MEDS: INSULIN humuLIN R 100 UNIT/ML 3ML SQ SCH (13:14)
[2024-05-21] MEDS: morPHINE 2 MG SYG IVP ONE (13:41)
== END 2024-05-21 16:00 | disposition home or self-care (01) ==
LOC: EDH 20:34 → EDHIP 05-21 02:45 → INTOOBSV 05-21 02:45 → 4CH 05-21 05:06
PROVIDERS: ADMIT Internal Medicine; ATTEND Internal Medicine
DX: R07.89 Other chest pain (principal); I13.0 Hypertensive heart and chronic kidney disease with heart failure and stage 1 through stage 4 chronic kidney disease, or unspecified chronic kidney disease; E11.22 Type 2 diabetes mellitus with diabetic chronic kidney disease; D63.1 Anemia in chronic kidney disease; I50.9 Heart failure, unspecified; N18.9 Chronic kidney disease, unspecified; S20.01XA Contusion of right breast, initial encounter; S20.211A Contusion of right front wall of thorax, initial encounter; K31.84 Gastroparesis; E11.65 Type 2 diabetes mellitus with hyperglycemia; E11.43 Type 2 diabetes mellitus with diabetic autonomic (poly)neuropathy; E43 Unspecified severe protein-calorie malnutrition; E78.00 Pure hypercholesterolemia, unspecified; H54.3 Unqualified visual loss, both eyes; Z79.4 Long term (current) use of insulin; Z79.899 Other long term (current) drug therapy; Z98.890 Other specified postprocedural states
CPT/HCPCS: 82435; 82550; 80076; 82947; 84484 ×4; 84132; 84295; 80048; 82803; 83880 ×2; 83690; 85025 ×2; 85610; 85730; 85018; 83605; 82010; 71045; 96374; 99291; 93005; 36600; 96375; 83735; 80053; 82948 ×2; 36415 ×2; J1815; G0378 ×13; J2270; J1170

== ENCOUNTER 2024-05-27 20:27 | Emergency (ER) | payer OTHER, MEDICARE ==
[~2024-05-27] VITALS: Ht 162.6 cm; Wt 63.5 kg
[~2024-05-27 20:27] MED LIST changes: +ACET-2079 PO
[2024-05-27] MEDS: acetaMINOPHEN WITH coDEINE 1 TAB TAB PO ONE (20:57)
[2024-05-27] MEDS ORDERED: ACET-2079 PO (21:44)
[2024-05-27 22:31] VITALS: RESP 12; TEMP 98.1; O2SAT 0
[2024-05-27 22:36] VITALS: BP 174/97; PULSE 96
[2024-05-27] MEDS: cloNIDine HCL 0.1 MG TABLET PO STA (22:36)
[2024-05-27] MEDS: ORPHENADRINE 60MG/2ML IM ONE (22:37)
== END 2024-05-27 22:57 | disposition home or self-care (01) ==
LOC: EDH 20:27
DX: S20.211A Contusion of right front wall of thorax, initial encounter (principal); I11.0 Hypertensive heart disease with heart failure; I50.9 Heart failure, unspecified; E78.00 Pure hypercholesterolemia, unspecified; E11.40 Type 2 diabetes mellitus with diabetic neuropathy, unspecified; Z91.040 Latex allergy status; Z79.899 Other long term (current) drug therapy; W01.0XXA Fall on same level from slipping, tripping and stumbling without subsequent striking against object, initial encounter; Y93.89 Activity, other specified; Y92.89 Other specified places as the place of occurrence of the external cause; Y99.8 Other external cause status
CPT/HCPCS: 71101; 96372; J2360

== ENCOUNTER 2024-06-05 18:10 | Inpatient (IN) | payer OTHER, MEDICARE ==
[~2024-06-05] VITALS: Ht 162.6 cm; Wt 69.1 kg
[~2024-06-05 18:10] MED LIST changes: -ARIP10TA54 PO; +ARIP10TA86 PO
[2024-06-05] MEDS: ondanSETRON 4MG INJ IVP ONE (18:31)
[2024-06-05 18:36] LABS: BASOPHILS # (AUTO) 0.02 K/uL (0.00-0.20); BASOPHILS % (AUTO) 0.2 % (0.0-5.0); EOSINOPHILS # (AUTO) 0.05 K/uL (0.00-0.70); EOSINOPHILS % (AUTO) 0.4 % (0.0-8.0); HEMATOCRIT 36.9 % (36-48); IMMATURE GRANULOCYTE ABSOLUTE 0.05 K/uL (0-1); LYMPHOCYTES # (AUTO) 1.9 K/uL (1.0-4.8); LYMPHOCYTES % (AUTO) 16.1 % (21.0-51.0); MEAN CORPUSCULAR HGB CONC 32.5 g/dL (32.0-36.0); MONOCYTES # (AUTO) 0.5 K/uL (0.1-1.0); MONOCYTES % (AUTO) 4.2 % (3.0-13.0); NEUTROPHILS # (AUTO) 9.2 K/uL (1.8-7.7); NEUTROPHILS % (AUTO) 78.7 % (40.0-77.0); PLATELET COUNT (AUTO) 312 K/uL (130-400); RED BLOOD CELL COUNT(AUTO) 4.29 MIL/uL (4.00-5.50); WHITE BLOOD COUNT (AUTO) 11.7 K/uL (4.8-10.8)
[2024-06-05 18:45] LABS: ADD UA MICROSCOPIC YES; APPEARANCE,URINE CLOUDY (CLEAR); BILIRUBIN,URINE NEGATIVE (NEGATIVE); COLOR,URINE LIGHT-YELLOW (YELLOW); GLUCOSE, URINE (UA) >=1000 mg/dL (NEGATIVE); KETONES,URINE NEGATIVE (NEGATIVE); LEUKOCYTE ESTERASE ,URINE 25 Leu/uL (NEGATIVE); NITRATE,URINE NEGATIVE (NEGATIVE); OCCULT BLOOD,URINE SMALL (NEGATIVE); PH,URINE 6.5 (5.0-8.0); PROTEIN,URINE 600 mg/dL (NEGATIVE); UROBILINOGEN,URINE 0.2 mg/dL (0.2-1.0)
[2024-06-05 18:46] LABS: CREATININE 3.4 mg/dL (0.5-1.0); MAGNESIUM 1.8 mg/dL (1.80-2.40); POTASSIUM 3.9 mmol/L (3.5-5.1)
[2024-06-05 18:46] LABS: BACTERIA,URINE RARE /HPF (None Seen); HYALINE CASTS, URINE 0-1 /LPF (0-1 /LPF); MUCUS,URINE RARE LPF (None Seen); SQUAMOUS EPITHELIAL CELL,UR RARE /HPF (0-2); WBC,URINE 26-50 /HPF (0-1)
[2024-06-05 18:49] LABS: RAPID GROUP A STREP negative (NEGATIVE)
[2024-06-05 18:55] LABS: B-TYPE NATRIURETIC PEPTIDE 810 pg/mL (0-100)
[2024-06-05 18:59] LABS: COVID19 (SARS ANTIGEN RAPID) PRESUMPTIVE NEGATIVE (NEGATIVE); INFLUENZA TYPE A Negative For Type A (NEGATIVE); INFLUENZA TYPE B Negative For Type B (NEGATIVE)
[2024-06-05 19:00] LABS: AMMONIA < 10 umol/L (11-32)
[2024-06-05 19:02] LABS: ABG BASE EXCESS -3.2 mmol/L (-2.0-3.0); ABG HCO3 21.9 mmol/L (21.0-28.0); ABG OXYGEN SATURATION 94.8 % (94.0-98.0); ABG PCO2 39 mmHg (32-45); ABG PH 7.362 (7.350-7.450); CARBON MONOXIDE 0.3 % (0.5-1.5); DEVICE COMMENT ROOM AIR; HHb 5.2; PO2, ARTERIAL BG 80.3 mmHg (83.0-108.0)
[2024-06-05 19:03] LABS: ALCOHOL, BLOOD < 3 mg/dL (0-10)
[2024-06-05 19:37] LABS: AMPHET/METH SCREEN,URINE NEGATIVE (NEGATIVE); BARBITURATE SCREEN, URINE NEGATIVE (NEGATIVE); BENZODIAZEPINES SCREEN,URINE NEGATIVE (NEGATIVE); CANNABINOID SCREEN,URINE NEGATIVE (NEGATIVE); COCAINE SCREEN,URINE NEGATIVE (NEGATIVE); PHENCYCLIDINE SCREEN,URINE NEGATIVE (NEGATIVE)
[2024-06-05 19:47] LABS: OPIATE SCREEN,URINE NEGATIVE (NEGATIVE)
[2024-06-05] MEDS: 0.9%NACL 1000ML 1,000 ML IV ONE (20:24)
[2024-06-05] MEDS: cefTRIAXone 1G VIAL IVPB ONE (20:24)
[2024-06-05] MEDS: hydroMORPHone 1 MG INJ IVP ONE (20:25)
[2024-06-05] MEDS: metoCLOPRAmide 10 MG/2 ML VIAL IVP ONE (20:25)
[2024-06-05] MEDS: hydrALAZine 20MG/ML VIAL IV ONE ×2 (20:43→20:44)
[2024-06-05] MEDS: LAbetaLOL 20MG SYG IV ONE (22:17)
[2024-06-05] MEDS: 0.9%NACL 1000ML 1,000 ML IV SCH (22:27)
[2024-06-05] MEDS ORDERED: GLUCAGON 1MG KIT 1 MG ML IM PRN (22:30)
[2024-06-06] VITALS (8 sets, daily range): BP systolic 124–175; BP diastolic 57–88; PULSE 97–112; RESP 18–19; TEMP 97.6–99.5; O2SAT 97
[2024-06-06] MEDS: hydroMORPHone 1 MG INJ IV PRN (01:09)
[2024-06-06] MEDS: ondanSETRON 4MG INJ IV PRN (01:09)
[2024-06-06] MEDS: hydrALAZine 20MG/ML VIAL IV PRN (04:00)
[2024-06-06 04:20] LABS: BASOPHILS # (AUTO) 0.03 K/uL (0.00-0.20); BASOPHILS % (AUTO) 0.3 % (0.0-5.0); EOSINOPHILS # (AUTO) 0.05 K/uL (0.00-0.70); EOSINOPHILS % (AUTO) 0.5 % (0.0-8.0); HEMATOCRIT 36.1 % (36-48); IMMATURE GRANULOCYTE ABSOLUTE 0.03 K/uL (0-1); LYMPHOCYTES # (AUTO) 1.9 K/uL (1.0-4.8); LYMPHOCYTES % (AUTO) 19.4 % (21.0-51.0); MEAN CORPUSCULAR HEMOGLOBIN 28.2 pg (27.0-33.0); MEAN CORPUSCULAR HGB CONC 32.1 g/dL (32.0-36.0); MEAN CORPUSCULAR VOLUME 87.8 fL (79-99); MONOCYTES # (AUTO) 0.4 K/uL (0.1-1.0); MONOCYTES % (AUTO) 4.6 % (3.0-13.0); NEUTROPHILS # (AUTO) 7.2 K/uL (1.8-7.7); NEUTROPHILS % (AUTO) 74.9 % (40.0-77.0); PLATELET COUNT (AUTO) 302 K/uL (130-400); RED BLOOD CELL COUNT(AUTO) 4.11 MIL/uL (4.00-5.50); RED CELL DISTRIBUTION WIDTH 15.1 % (11.0-15.5); WHITE BLOOD COUNT (AUTO) 9.6 K/uL (4.8-10.8)
[2024-06-06 04:43] LABS: ALBUMIN 1.1 g/dL (3.5-5.0); BILIRUBIN,TOTAL 0.1 mg/dL (0.2-1.0); CREATININE 3.4 mg/dL (0.5-1.0); MAGNESIUM 1.8 mg/dL (1.80-2.40); POTASSIUM 3.6 mmol/L (3.5-5.1); TOTAL PROTEIN, SERUM 5.3 g/dL (6.0-8.3)
[2024-06-06] MEDS: INSULIN humuLIN R 100 UNIT/ML 3ML SQ SCH (05:59)
[2024-06-06] MEDS: FAMOTIDINE 20MG VIAL IV SCH (08:49)
[2024-06-06] MEDS: hydroMORPHone 0.5 MG SYG (0.5MG/0.5ML) ONE ×2 (08:50→16:40)
[2024-06-06] MEDS ORDERED: metoCLOPRAmide 10 MG TABLET PO PRN (11:30)
[2024-06-06] MEDS: DEXTROSE 5 % AND 0.9 % NACL 1,000 ML IV SCH (12:19)
[2024-06-06 15:43] LABS: HEMOGLOBIN A1C 8.7 % (4.0-6.0)
[2024-06-06] MEDS ORDERED: IRON (20:11)
[2024-06-06] MEDS ORDERED: MAGNESIUM (20:11)
[2024-06-06] MEDS ORDERED: CYCL-309 PO (20:11)
[2024-06-06] MEDS ORDERED: POTASSIUM 99 MG (20:11)
[2024-06-06] MEDS ORDERED: clonazePAM 1MG TAB PO SCH (21:00)
[2024-06-06] MEDS: metoPROLOL tartRATE 50 MG TAB PO SCH (21:35)
[2024-06-06] MEDS: cefTRIAXone 1G VIAL IV SCH (21:35)
[2024-06-06] MEDS: hydroMORPHone 0.5 MG SYG (0.5MG/0.5ML) IVP PRN (21:46)
[2024-06-07] VITALS (8 sets, daily range): BP systolic 134–180; BP diastolic 70–83; PULSE 70–84; RESP 16–20; TEMP 97.1–98.2; O2SAT 97–98
[2024-06-07] MEDS: hydrALAZine 20MG/ML VIAL IV PRN (01:09)
[2024-06-07 05:58] LABS: HEMATOCRIT 34.1 % (36-48); MEAN CORPUSCULAR HEMOGLOBIN 27.9 pg (27.0-33.0); MEAN CORPUSCULAR VOLUME 87.4 fL (79-99); RED BLOOD CELL COUNT(AUTO) 3.9 MIL/uL (4.00-5.50); RED CELL DISTRIBUTION WIDTH 15.1 % (11.0-15.5); WHITE BLOOD COUNT (AUTO) 8.8 K/uL (4.8-10.8)
[2024-06-07 07:10] LABS: BILIRUBIN,TOTAL 0.1 mg/dL (0.2-1.0); CREATININE 3.4 mg/dL (0.5-1.0); MAGNESIUM 1.8 mg/dL (1.80-2.40); PHOSPHORUS 3.8 mg/dL (2.5-4.9); POTASSIUM 3.6 mmol/L (3.5-5.1); TOTAL PROTEIN, SERUM 4.5 g/dL (6.0-8.3)
[2024-06-07] MEDS ORDERED: ARIPIPrazole 5 MG TABLET PO SCH (09:00)
[2024-06-07] MEDS: FLUoxetine HCL 20 MG CAPSULE PO SCH (09:53)
[2024-06-07] MEDS: atorVAStatin 40 MG TABLET PO SCH (09:54)
[2024-06-07] MEDS ORDERED: COMPOUND IV MISC 1 EACH IVSOLN MISC PRN (11:00)
[2024-06-07] MEDS: MEROPENEM 500 MG in 0.9%NACL 100ML 100 ML IV SCH (12:08)
[2024-06-07] MEDS: PHARMACY COMMUNICATION MISC SCH (14:00)
[2024-06-07] MEDS: daptoMYCin 500MG/vial 500 MG in 0.9%NACL 50ML 50 ML IV SCH (16:07)
[2024-06-07] MEDS: metoCLOPRAmide 10 MG/2 ML VIAL IVP SCH (18:15)
[2024-06-08] VITALS (7 sets, daily range): BP systolic 129–162; BP diastolic 62–80; PULSE 65–71; RESP 18–20; TEMP 97.8–99; O2SAT 97–98
[2024-06-08] MEDS: DEXTROSE 50%-WATER 50 ML DISP.SYRIN IV PRN (05:23)
[2024-06-08 06:11] LABS: HEMATOCRIT 34.3 % (36-48); MEAN CORPUSCULAR HEMOGLOBIN 27.5 pg (27.0-33.0); MEAN CORPUSCULAR HGB CONC 31.2 g/dL (32.0-36.0); MEAN CORPUSCULAR VOLUME 88.2 fL (79-99); RED BLOOD CELL COUNT(AUTO) 3.89 MIL/uL (4.00-5.50); RED CELL DISTRIBUTION WIDTH 15.1 % (11.0-15.5); WHITE BLOOD COUNT (AUTO) 7.5 K/uL (4.8-10.8)
[2024-06-08 06:14] LABS: CREATININE 3.6 mg/dL (0.5-1.0); MAGNESIUM 1.8 mg/dL (1.80-2.40); PHOSPHORUS 3.6 mg/dL (2.5-4.9); POTASSIUM 3.3 mmol/L (3.5-5.1)
[2024-06-08 08:07] LABS: CREATININE,URINE RANDOM 108.4 mg/dL (30-135)
[2024-06-08 08:26] LABS: PROTEIN,URINE RANDOM 661.4 mg/dL (0-11.9)
[2024-06-08] MEDS: Vitamin B Complex/Vit C/Folic Acid PO SCH (10:50)
[2024-06-08] MEDS: traMADol /APAP 37.5MG/325MG TAB PO SCH (11:19)
[2024-06-08] MEDS: metoCLOPRAmide 10 MG/2 ML VIAL IVP SCH (13:35)
[2024-06-08] MEDS: traMADol /APAP 37.5MG/325MG TAB PO PRN (21:02)
[2024-06-09] VITALS (7 sets, daily range): BP systolic 112–184; BP diastolic 62–80; PULSE 64–84; RESP 16–20; TEMP 98.1–98.5; O2SAT 98
[2024-06-09 04:56] LABS: HEMATOCRIT 32.9 % (36-48); MEAN CORPUSCULAR HEMOGLOBIN 28.2 pg (27.0-33.0); MEAN CORPUSCULAR HGB CONC 31.9 g/dL (32.0-36.0); MEAN CORPUSCULAR VOLUME 88.2 fL (79-99); RED BLOOD CELL COUNT(AUTO) 3.73 MIL/uL (4.00-5.50); WHITE BLOOD COUNT (AUTO) 8.8 K/uL (4.8-10.8)
[2024-06-09 05:12] LABS: ALBUMIN 0.9 g/dL (3.5-5.0); BILIRUBIN,TOTAL 0.1 mg/dL (0.2-1.0); CREATININE 3.9 mg/dL (0.5-1.0); MAGNESIUM 1.9 mg/dL (1.80-2.40); POTASSIUM 3.6 mmol/L (3.5-5.1); TOTAL PROTEIN, SERUM 4.5 g/dL (6.0-8.3)
[2024-06-09] MEDS: FAMOTIDINE 20MG VIAL IV SCH (08:36)
[2024-06-09] MEDS: hydroMORPHone 0.5 MG SYG (0.5MG/0.5ML) IVP PRN (10:15)
[2024-06-09 10:25] LABS: INR 0.95 (0.85-1.15); PROTHROMBIN TIME 10.3 SEC (9.6-11.6)
[2024-06-09 10:27] LABS: PARTIAL THROMBOPLASTIN TIME 25.5 SEC (26.3-35.5)
[2024-06-10] VITALS (9 sets, daily range): BP systolic 112–175; BP diastolic 68–88; PULSE 68–89; RESP 16–20; TEMP 97.8–98.1; O2SAT 95–98
[2024-06-10 14:51] LABS: HEMATOCRIT 30.6 % (36-48); MEAN CORPUSCULAR HEMOGLOBIN 28.2 pg (27.0-33.0); MEAN CORPUSCULAR VOLUME 87.9 fL (79-99); RED BLOOD CELL COUNT(AUTO) 3.48 MIL/uL (4.00-5.50); RED CELL DISTRIBUTION WIDTH 15.2 % (11.0-15.5); WHITE BLOOD COUNT (AUTO) 9.5 K/uL (4.8-10.8)
[2024-06-10 15:02] LABS: POTASSIUM 3.6 mmol/L (3.5-5.1)
[2024-06-10 15:06] LABS: ABG OXYGEN SATURATION 97.6 % (94.0-98.0); BASE EXCESS,VENOUS BLOOD GAS -4.5 (-2.0-3.0); DEVICE COMMENT VEN; HCO3,VENOUS BLOOD GAS 21.8 (22.0-29.0); PCO2,VENOUS BLOOD GAS 45 (38-54); PH,VENOUS BLOOD GAS 7.307 (7.320-7.430); PO2,VENOUS BLOOD GAS 109.7 mmHg (23.0-48.0); VENT MODE, BG RA (ROOM AIR)
[2024-06-10] MEDS: SODIUM BICARB 50MEQ 50ML VIAL IV ONE (16:24)
[2024-06-10] MEDS: SODIUM BICARBONATE 650 MG TAB PO SCH (16:25)
[2024-06-11] VITALS (9 sets, daily range): BP systolic 120–152; BP diastolic 53–86; PULSE 66–80; RESP 16–18; TEMP 97.8–98.2; O2SAT 95–99
[2024-06-11 04:03] LABS: HEMATOCRIT 34.6 % (36-48); MEAN CORPUSCULAR HGB CONC 32.1 g/dL (32.0-36.0); MEAN CORPUSCULAR VOLUME 87.4 fL (79-99); RED BLOOD CELL COUNT(AUTO) 3.96 MIL/uL (4.00-5.50); RED CELL DISTRIBUTION WIDTH 15.1 % (11.0-15.5); WHITE BLOOD COUNT (AUTO) 7.7 K/uL (4.8-10.8)
[2024-06-11 04:24] LABS: CREATININE 4.2 mg/dL (0.5-1.0); POTASSIUM 4.1 mmol/L (3.5-5.1)
[2024-06-11] MEDS ORDERED: COMPOUND IV REFRIGERATED 1 EACH IVSOLN MISC PRN (12:30)
[2024-06-11] MEDS: hydroMORPHone 0.5 MG SYG (0.5MG/0.5ML) IVP ONE (22:10)
[2024-06-12] VITALS (8 sets, daily range): BP systolic 140–177; BP diastolic 72–100; PULSE 70–81; RESP 16–20; TEMP 97.8–98.6; O2SAT 99–100
[2024-06-12 03:56] LABS: MEAN CORPUSCULAR HEMOGLOBIN 27.7 pg (27.0-33.0); MEAN CORPUSCULAR HGB CONC 31.7 g/dL (32.0-36.0); MEAN CORPUSCULAR VOLUME 87.3 fL (79-99); RED BLOOD CELL COUNT(AUTO) 3.32 MIL/uL (4.00-5.50); RED CELL DISTRIBUTION WIDTH 14.8 % (11.0-15.5); WHITE BLOOD COUNT (AUTO) 8.3 K/uL (4.8-10.8)
[2024-06-12 04:21] LABS: POTASSIUM 3.7 mmol/L (3.5-5.1)
[2024-06-12] MEDS: hydroMORPHone 0.5 MG SYG (0.5MG/0.5ML) IVP PRN (11:11)
[2024-06-13 04:00] VITALS: BP 166/82; PULSE 72; RESP 18; TEMP 98.1
[2024-06-13 04:10] LABS: HEMATOCRIT 29.4 % (36-48); MEAN CORPUSCULAR HGB CONC 32.3 g/dL (32.0-36.0); MEAN CORPUSCULAR VOLUME 86.7 fL (79-99); RED BLOOD CELL COUNT(AUTO) 3.39 MIL/uL (4.00-5.50); RED CELL DISTRIBUTION WIDTH 14.8 % (11.0-15.5); WHITE BLOOD COUNT (AUTO) 8.1 K/uL (4.8-10.8)
[2024-06-13 04:37] LABS: BILIRUBIN,TOTAL 0.1 mg/dL (0.2-1.0); CREATININE 3.8 mg/dL (0.5-1.0); MAGNESIUM 1.9 mg/dL (1.80-2.40); POTASSIUM 4.2 mmol/L (3.5-5.1); TOTAL PROTEIN, SERUM 4.4 g/dL (6.0-8.3)
[2024-06-13 07:54] VITALS: BP 172/79; PULSE 72; RESP 20; TEMP 98
[2024-06-13] MEDS: amLODIPine 5 MG TAB PO ONE (09:26)
[2024-06-13 11:05] VITALS: BP 157/82; PULSE 90; RESP 20; TEMP 98
[2024-06-13 15:00] VITALS: BP 165/79; PULSE 74; RESP 20; TEMP 98.2
[2024-06-13 15:49] VITALS: O2SAT 100
[2024-06-14] MEDS ORDERED: amLODIPine 5 MG TAB PO SCH (09:00)
== END 2024-06-13 18:05 | DRG 872 ==
LOC: EDH 18:10 → EDHIP 21:56 → 4CH 06-06 00:25 → UNDODISIN 06-09 17:45 → 4DH 06-11 14:41
PROVIDERS: ADMIT Internal Medicine; ATTEND Internal Medicine
PROC: 02HV33Z Insertion of Infusion Device into Superior Vena Cava, Percutaneous Approach (ICD-10-PCS; principal; 2024-06-06)
DX: A41.01 Sepsis due to Methicillin susceptible Staphylococcus aureus (principal); N17.9 Acute kidney failure, unspecified; N39.0 Urinary tract infection, site not specified; Z16.24 Resistance to multiple antibiotics; Z16.12 Extended spectrum beta lactamase (ESBL) resistance; E11.43 Type 2 diabetes mellitus with diabetic autonomic (poly)neuropathy; I12.9 Hypertensive chronic kidney disease with stage 1 through stage 4 chronic kidney disease, or unspecified chronic kidney disease; N18.9 Chronic kidney disease, unspecified; K31.84 Gastroparesis; Z20.822 Contact with and (suspected) exposure to COVID-19; E86.0 Dehydration; E11.65 Type 2 diabetes mellitus with hyperglycemia; R79.89 Other specified abnormal findings of blood chemistry; B96.20 Unspecified Escherichia coli [E. coli] as the cause of diseases classified elsewhere; H54.3 Unqualified visual loss, both eyes; B96.89 Other specified bacterial agents as the cause of diseases classified elsewhere; E78.5 Hyperlipidemia, unspecified; E11.319 Type 2 diabetes mellitus with unspecified diabetic retinopathy without macular edema; E11.22 Type 2 diabetes mellitus with diabetic chronic kidney disease; F41.9 Anxiety disorder, unspecified; D64.9 Anemia, unspecified; B96.1 Klebsiella pneumoniae [K. pneumoniae] as the cause of diseases classified elsewhere; Z87.440 Personal history of urinary (tract) infections; Z83.3 Family history of diabetes mellitus
CPT/HCPCS: 36415; 36600; 70450; 71045; 74176; 76705; 76856; 78227; 80048; 80053; 80305; 81001; 81025; 82140; 82435; 82570; 82803; 82947; 82948; 83036; 83605; 83735; 83880; 84100; 84132; 84156; 84295; 84484; 84550; 85018; 85025; 85027; 85610; 85730; 86304; 87040; 87086; 87186; 87426; 87804; 87880; 93005; 93306; 93356; 93971; A9537; C1894; G0378; J0360; J0696; J0878; J1171; J1815; J2185; J2405; J2765; J3490; J7030; J7070; A4600

== ENCOUNTER 2024-06-20 14:30 | Emergency (ER) | payer OTHER, MEDICARE ==
[~2024-06-20] VITALS: Ht 162.6 cm; Wt 63.5 kg
[~2024-06-20 14:30] MED LIST changes: -ACET-2079 PO; -AMLO5TAB4 PO; -ARIP10TA86 PO; -BROM118S48 PO; -CLON1TAB12 PO; +CYCL-309 PO; +IRON; +MAGNESIUM; +POTASSIUM 99 MG
[2024-06-20 15:05] LABS: BASOPHILS # (AUTO) 0.04 K/uL (0.00-0.20); BASOPHILS % (AUTO) 0.5 % (0.0-5.0); EOSINOPHILS # (AUTO) 0.15 K/uL (0.00-0.70); HEMATOCRIT 29.5 % (36-48); IMMATURE GRANULOCYTE ABSOLUTE 0.02 K/uL (0-1); LYMPHOCYTES # (AUTO) 1.4 K/uL (1.0-4.8); LYMPHOCYTES % (AUTO) 18.4 % (21.0-51.0); MEAN CORPUSCULAR HEMOGLOBIN 27.8 pg (27.0-33.0); MEAN CORPUSCULAR HGB CONC 32.5 g/dL (32.0-36.0); MEAN CORPUSCULAR VOLUME 85.5 fL (79-99); MONOCYTES # (AUTO) 0.3 K/uL (0.1-1.0); NEUTROPHILS # (AUTO) 5.6 K/uL (1.8-7.7); NEUTROPHILS % (AUTO) 74.8 % (40.0-77.0); PLATELET COUNT (AUTO) 255 K/uL (130-400); RED BLOOD CELL COUNT(AUTO) 3.45 MIL/uL (4.00-5.50); RED CELL DISTRIBUTION WIDTH 14.3 % (11.0-15.5); WHITE BLOOD COUNT (AUTO) 7.5 K/uL (4.8-10.8)
[2024-06-20 15:17] LABS: CREATININE 3.7 mg/dL (0.5-1.0); POTASSIUM 4.7 mmol/L (3.5-5.1)
[2024-06-20 15:25] LABS: ALBUMIN 1.2 g/dL (3.5-5.0); BILIRUBIN,TOTAL 0.1 mg/dL (0.2-1.0)
[2024-06-20] MEDS: MAG/ALUM/SIMETH 30 ML UDCUP PO ONE (15:37)
[2024-06-20] MEDS: LACTATED RINGERS 1000ML 1,000 ML IV ONE (15:38)
[2024-06-20] MEDS: LIDOCAINE HCL 2% VISCOUS 15 ML UDCUP PO ONE (15:38)
[2024-06-20] MEDS: PANTOPrazole 40 MG/VIAL IVP ONE (15:38)
[2024-06-20] MEDS: ondanSETRON 4MG INJ IVP ONE (15:38)
[2024-06-20] MEDS: ketOROlac 30MG VIAL (30MG/ML) IM ONE (18:39)
[2024-06-20 20:06] LABS: APPEARANCE,URINE CLEAR (CLEAR); BILIRUBIN,URINE NEGATIVE (NEGATIVE); COLOR,URINE COLORLESS (YELLOW); GLUCOSE, URINE (UA) 500 mg/dL (NEGATIVE); KETONES,URINE NEGATIVE (NEGATIVE); LEUKOCYTE ESTERASE ,URINE NEGATIVE Leu/uL (NEGATIVE); NITRATE,URINE NEGATIVE (NEGATIVE); OCCULT BLOOD,URINE SMALL (NEGATIVE); PROTEIN,URINE 300 mg/dL (NEGATIVE); UROBILINOGEN,URINE 0.2 mg/dL (0.2-1.0)
[2024-06-20 20:08] LABS: ADD UA MICROSCOPIC YES
[2024-06-20] MEDS: hydrALAZine 20MG/ML VIAL IV ONE (20:08)
[2024-06-20 20:11] LABS: SQUAMOUS EPITHELIAL CELL,UR FEW /HPF (0-2); WBC,URINE 0-1 /HPF (0-1)
[2024-06-20 20:13] LABS: AMPHET/METH SCREEN,URINE NEGATIVE (NEGATIVE); BARBITURATE SCREEN, URINE NEGATIVE (NEGATIVE); BENZODIAZEPINES SCREEN,URINE NEGATIVE (NEGATIVE); CANNABINOID SCREEN,URINE NEGATIVE (NEGATIVE); COCAINE SCREEN,URINE NEGATIVE (NEGATIVE); OPIATE SCREEN,URINE NEGATIVE (NEGATIVE); PHENCYCLIDINE SCREEN,URINE NEGATIVE (NEGATIVE)
[2024-06-20] MEDS: morPHINE 2 MG SYG IVP ONE (21:08)
[2024-06-20 21:25] VITALS: BP 150/78; PULSE 88; RESP 18; TEMP 98; O2SAT 99
== END 2024-06-20 21:32 | disposition home or self-care (01) ==
LOC: EDH 14:30
DX: E11.43 Type 2 diabetes mellitus with diabetic autonomic (poly)neuropathy (principal); K31.84 Gastroparesis; I16.0 Hypertensive urgency; F41.9 Anxiety disorder, unspecified; E78.00 Pure hypercholesterolemia, unspecified; I11.0 Hypertensive heart disease with heart failure; I50.9 Heart failure, unspecified; R10.2 Pelvic and perineal pain; Z79.899 Other long term (current) drug therapy; Z91.040 Latex allergy status
CPT/HCPCS: 99285; 74176; 96374; 96361; 96375; 82550; 84484; 80053; 80305; 84702; 83690; 85025; 36415; 93005 ×2; 96372; 81001; J7120; J2270; J0360; J2405; J1885; J2470

== ENCOUNTER 2024-06-23 22:37 | Emergency (ER) | payer OTHER, MEDICARE ==
[~2024-06-23] VITALS: Ht 162.6 cm; Wt 63.5 kg
[2024-06-23 23:01] LABS: BASOPHILS # (AUTO) 0.05 K/uL (0.00-0.20); BASOPHILS % (AUTO) 0.8 % (0.0-5.0); EOSINOPHILS # (AUTO) 0.11 K/uL (0.00-0.70); EOSINOPHILS % (AUTO) 1.7 % (0.0-8.0); HEMATOCRIT 30.7 % (36-48); IMMATURE GRANULOCYTE ABSOLUTE 0.03 K/uL (0-1); LYMPHOCYTES # (AUTO) 1.6 K/uL (1.0-4.8); LYMPHOCYTES % (AUTO) 23.8 % (21.0-51.0); MEAN CORPUSCULAR HEMOGLOBIN 28.3 pg (27.0-33.0); MEAN CORPUSCULAR HGB CONC 32.2 g/dL (32.0-36.0); MEAN CORPUSCULAR VOLUME 87.7 fL (79-99); MONOCYTES # (AUTO) 0.4 K/uL (0.1-1.0); MONOCYTES % (AUTO) 5.3 % (3.0-13.0); NEUTROPHILS # (AUTO) 4.5 K/uL (1.8-7.7); NEUTROPHILS % (AUTO) 67.9 % (40.0-77.0); PLATELET COUNT (AUTO) 275 K/uL (130-400); RED CELL DISTRIBUTION WIDTH 14.3 % (11.0-15.5); WHITE BLOOD COUNT (AUTO) 6.6 K/uL (4.8-10.8)
[2024-06-23 23:11] LABS: CREATININE 3.8 mg/dL (0.5-1.0); POTASSIUM 4.7 mmol/L (3.5-5.1)
[2024-06-23 23:47] LABS: B-TYPE NATRIURETIC PEPTIDE 682 pg/mL (0-100)
[2024-06-24] MEDS: hydrALAZine 20MG/ML VIAL IV ONE (00:21)
[2024-06-24] MEDS: metoCLOPRAmide 10 MG/2 ML VIAL IVP ONE (00:21)
[2024-06-24 00:39] VITALS: BP 154/81; PULSE 92; RESP 18; TEMP 98.3; O2SAT 98
[2024-06-24] MEDS: ondanSETRON 4MG INJ IVP ONE (00:40)
[2024-06-24] MEDS: morPHINE 4 MG SYG IM ONE (00:41)
== END 2024-06-24 01:04 | disposition home or self-care (01) ==
LOC: EDH 22:37
DX: R07.9 Chest pain, unspecified (principal); R10.9 Unspecified abdominal pain; E11.22 Type 2 diabetes mellitus with diabetic chronic kidney disease; I13.0 Hypertensive heart and chronic kidney disease with heart failure and stage 1 through stage 4 chronic kidney disease, or unspecified chronic kidney disease; N18.9 Chronic kidney disease, unspecified; I50.9 Heart failure, unspecified; E78.00 Pure hypercholesterolemia, unspecified; F41.9 Anxiety disorder, unspecified; Z91.040 Latex allergy status; Z79.899 Other long term (current) drug therapy; Z79.4 Long term (current) use of insulin; Z89.429 Acquired absence of other toe(s), unspecified side
CPT/HCPCS: 99285; 74176; 71045; 82550; 80048; 83880; 83690; 85025; 36415; 93005; 96374; 96375; 96372; J0360; J2405; J2270; J2765

== ENCOUNTER 2024-07-05 13:50 | Emergency (ER) | payer OTHER, MEDICARE ==
[~2024-07-05] VITALS: Ht 162.6 cm; Wt 63.5 kg
[~2024-07-05 13:50] MED LIST changes: +AEC81 PO; -BUTA-271 PO; -POTASSIUM 99 MG
[2024-07-05 14:47] VITALS: BP 144/86; PULSE 77; RESP 16; TEMP 98.6; O2SAT 98
[2024-07-05] MEDS: acetaMINOPHEN 500 MG TABLET PO ONE (14:57)
--- NOTE | 2024-07-05 15:01 | HMCIMG ---
ANKLE 2VWS LT HISTORY: Status post fall COMPARISON: None TECHNIQUE: 2 images of the left ankle were obtained. FINDINGS: There is no acute displaced fracture or dislocation. There is soft tissue swelling. Minimal degenerative changes are seen. IMPRESSION: 1. Findings as described above.
--- NOTE | 2024-07-05 15:01 | HMCIMG ---
CERV SPINE 2-3VWS HISTORY: Status post fall COMPARISON: None FINDINGS: 3 images of cervical spine were obtained. There is straightening of normal lordotic curvature which may be related to muscle spasm or positioning. No loss of vertebral height is seen. No fracture or dislocation is seen. IMPRESSION: 1. No fracture is seen.
--- NOTE | 2024-07-05 15:06 | ERN ---
General Chief Complaint: Mechanical Fall Stated Complaint: FALL Time Seen by MD: 13:56 Source: patient History of Present Illness Initial Comments Patient is a 38-year-old female coming in to be evaluated after she had a fall off a scooter. Per patient she was bothering her scooter fell back states he her neck and her left ankle. No deformity noted no loss of consciousness. Allergies: Coded Allergies: Latex, Natural Rubber (Unverified Allergy, Unknown, 02/04/23) Home Meds Active Scripts Aspirin (ASPIRIN 81 MG ECTAB) 81 Mg Ectab, 81 MG PO DAILY, #30 TAB.EC 0 Refills Prov:NANCY CHENEY MD 06/29/24 Hydralazine HCl (Apresoline) 25 Mg Tab, 25 MG PO TID, #90 TAB 0 Refills Prov:NANCY CHENEY MD 05/04/24 Metoprolol Tartrate (Lopressor 50Mg Tab) 50 Mg Tab, 50 MG PO BID, #60 TAB Prov:HORTENCIA CALIXOT [employer] TE[employer]ER 04/11/24 Reported Medications [Magnesium Tab Qd] 250 MG No Conflict Check, DAILY 06/06/24 [Iron Tab Qd] 45 MG No Conflict Check, DAILY 06/06/24 Cyclobenzaprine HCl (Cyclobenzaprine HCl) 10 Mg Tablet, 1 TAB PO TID PRN for MUSCLE SPASMS for 10 Days, #30 TAB 0 Refills 06/06/24 Insulin Detemir (Levemir) 100 Unit/Ml Vial, 15 UNIT SQ HS, VIAL 04/30/24 Metoclopramide HCl (Metoclopramide HCl) 10 Mg Tablet, 10 MG PO QIDP PRN for nausea/vomiting 04/10/24 Sodium Bicarbonate (Sodium Bicarbonate) 650 Mg Tablet, 1 TAB PO TID 04/10/24 Fluoxetine HCl (Fluoxetine HCl) 40 Mg Capsule, 1 CAP PO HS 04/10/24 Atorvastatin Calcium (Atorvastatin Calcium) 40 Mg Tablet, 1 TAB PO HS 04/10/24 Discontinued Reported Medications [Potassium 99MG Daily] No Conflict Check 06/06/24 Discontinued Scripts Butalb/Acetaminophen/Caffeine (Esgic 50-325-40 mg Tablet) 50 Mg-325 Mg-40 Mg Tablet, 2 EACH PO Q4PRN for HEADACHE, #30 TAB TWO TABLETS BY MOUTH EVERY4 HOURS P.R.N. HEADACHE, MAXIMUM SIX TABLETS IN 24 HOURS. Prov:TAN DAWN RAISE DRILLER 04/18/24 Past Medical History Past Medical History: Anemia, Anxiety, CHF, Diabetes-Type II, Glaucoma, High Cholesterol, Hypertension Medical History Other: GLAUCOMA Past Surgical History: Other, Surgical History Other: AMPUTATIONS, BACK Female( History) History: Not Applicable ROS Dictation CONSTITUTIONAL: No chills, no fever, no weakness, no diaphoresis, no malaise. HEAD/FACE: No signs of trauma. EENT: No eye pain, no blurred vision, no tearing, no double vision, no ear pain, no ear discharge, no nose pain, no nasal congestion, no throat pain, no throat swelling, no mouth pain. RESPIRATORY: No cough, no orthopnea, no SOB, no stridor, no wheezing. CARDIOVASCULAR: No chest pain, no edema, no palpitations, no syncope. GASTROINTESTINAL/ABDOMINAL: No abdominal pain, no constipation, no diarrhea, no nausea, no vomiting. GENITOURINARY: No abnormal discharge, no dysuria, no frequent urination, no hematuria. No complaints of pain in the genitals. MUSCULOSKELETAL: No back pain, no gout, joint pain, no joint swelling, muscle pain, no muscle stiffness, no neck pain. INTEGUMENTARY: No change in color, no change in hair/nails, no dryness, no lesion, no lumps, no rash. NEUROLOGICAL/PSYCH: No anxiety, not depressed, no emotional problem, no headache, no numbness, no pre-existing deficit, no history of seizures, no tremors, no weakness. HEMATOLOGIC/LYMPHATIC: Not anemic, no history of blood clots, no apparent bleeding, no bruising, glands not swollen. All Systems Negative, Except as Noted. Physical Exam Physical Exam Dictation VITAL SIGNS: Reviewed. GENERAL APPEARANCE: Alert, oriented x3, no acute distress, obese. HEAD AND FACE: Non-traumatic. EYES: PERRL, pink conjunctivas, eyelid no trauma, anterior chamber clear. EARS: Pinnas intact and no signs of trauma or erythema. Ear canals clear and no discharge. TMs no erythema. NOSE: No discharge, no bleeding. OROPHARYNX: Mouth normal, teeth no caries, tongue pink. Pharynx clear, no erythema. Tonsils no exudates, no abscesses noted. Mucous membrane moist. NECK: Supple, non-tender, no thyromegaly, no masses, no JVD, no bruits. BREAST: Deferred. CHEST: No tenderness, no crepitus, no paradoxical movement, no retractions. LUNGS: Clear, well-ventilated, symmetric, no rales, no wheezing, no rhonchi, no stridor, good breath sounds bilaterally. HEART: Regular rate, regular rhythm, no murmur, no gallops. VASCULAR: No peripheral edema. ABDOMEN: Soft, positive bowel sounds, nondistended, no guarding, nontender, no rebound, no masses no hepatomegaly, no splenomegaly, no Mandujano's sign, no hernias. RECTAL: Deferred. GENITAL: Deferred. NEUROLOGICAL: Normal speech, gross motor function intact, gross sensory function intact. MUSCULOSKELETAL: Neck tender, full range of motion, back nontender, full range of motion. EXTREMITIES: Nontender, full range of motion. SKIN: Color pink, dry, no turgor, no rash, no lacerations, no abrasions, no contusions. LYMPHATICS: Deferred. Results Laboratory and Microbiology Labs Reviewed?: Yes EKG/XRAY/US/CT/MRI X-RAY Comment [place] [address] [address] IMAGING REPORT Signed PATIENT: GAMALIEL GRANADOS MR#: [id number] : 1985 SEX: F AGE: 38 LOCATION: ED ORDER 1410 STATUS: [facility] REPORT#: [id number] SERVICE 1409 REASON: FALL ORDERING PHYSICIAN: TRACY JACK MD PROCEDURE: [id number] - ANKLE 2VWS LT ANKLE 2VWS LT HISTORY: Status post fall COMPARISON: None TECHNIQUE: 2 images of the left ankle were obtained. FINDINGS: There is no acute displaced fracture or dislocation. There is soft tissue swelling. Minimal degenerative changes are seen. IMPRESSION: 1. Findings as described above. DICTATED BY: WAYNE ARREDONDO MD DATE: 07/05/24 1283 ELECTRONICALLY SIGNED BY: WAYNE ARREDONDO MD DATE: 07/05/24 1502 IMAGING REPORT Signed PATIENT: GAMALIEL GRANADOS MR#: [id number] : 1985 SEX: F AGE: 38 LOCATION: EDH ORDER 1410 STATUS: REG ER REPORT#: [id number] SERVICE 1409 REASON: FALL ORDERING PHYSICIAN: TRACY JACK MD PROCEDURE: CERV 2 3VW - CERV SPINE 2-3VWS CERV SPINE 2-3VWS HISTORY: Status post fall COMPARISON: None FINDINGS: 3 images of cervical spine were obtained. There is straightening of normal lordotic curvature which may be related to muscle spasm or positioning. No loss of vertebral height is seen. No fracture or dislocation is seen. IMPRESSION: 1. No fracture is seen. DICTATED BY: WAYNE ARREDONDO MD DATE: 07/05/241458 ELECTRONICALLY SIGNED BY: WAYNE ARREDONDO MD DATE: 07/05/24 1501 MDM MDM: Differential diagnosis: Fall, fracture, sprain Patient is a 38-year-old female coming in to be evaluated after she fell off a scooter earlier today. She states he neck left ankle. X-ray did not disclose acute findings. Patient will be discharged with a diagnosis of mechanical fall with ankle sprain. ED Course Orders Procedure Category Date Status Time Cerv Spine 2-3vws RAD 07/05/24 Resulted 14:09 Ankle 2vws Lt RAD 07/05/24 Resulted 14:09 Acetaminophen 500mg PHA 07/05/24 Complete Tab (Tylenol 500mg T 14:30 Current Medications Medications (Trade) Dose Ordered Sig/Madhavi Route PRN Reason Start Time Stop Time Status Last Admin Dose Admin Acetaminophen (TYLenol 500MG TAB) 500 mg ONCE ONCE PO 07/05/24 14:30 07/05/24 14:31 DC 07/05/24 14:57 Vital Signs Date Time Temp Pulse Resp B/P (MAP) Pulse Ox O2 Delivery O2 Flow Rate FiO2 07/05/24 14:47 98.6 77 16 144/86 98 Room Air* 0 21 07/05/24 13:51 98.2 77 20 144/86 100 0 DX & DISP Disposition: Discharge Departure Impression: Primary Impression: Fall Additional Impression: Muscle strain Condition: Stable Additional Instructions: FOLLOW-UP WITH PRIMARY CARE PROVIDER IN 1 TO 2 DAYS. TAKE MEDICATIONS DIRECTED HERE IN THE EMERGENCY ROOM. OKAY TO CONTINUE HOME MEDICATIONS UNLESS OTHERWISE DISCUSSED DURING YOUR VISIT IN THE EMERGENCY ROOM TODAY. RETURN TO YOUR NEAREST EMERGENCY ROOM IF SYMPTOMS WORSEN OR IF THERE IS NO IMPROVEMENT. CALL 911 IF YOU NEED IMMEDIATE ASSISTANCE. TAKE TYLENOL [id number] NEEDED AND IF NO CONTRAINDICATIONS ARE PRESENT. INCREASE ORAL HYDRATION. A WOUND CULTURE OR URINE CULTURE WAS ORDERED HERE IN THE EMERGENCY ROOM DEPARTMENT PLEASE FOLLOW-UP WITH PRIMARY CARE PROVIDER AND ADVISE THEM TO GET REPEAT PORTS FROM OUR FACILITY. IF YOU HAD ANY DEANA WRAP/SPLINTS THAT WERE APPLIED HERE, PLEASE DO NOT REMOVE THEM UNTIL YOU SEE YOUR PRIMARY CARE OR SPECIALTY. Referrals: Referrals: SELF,REFERRAL (PCP) OC BANGURA MD Time of Disposition: 15:11 TRACY JACK MD Jul 05, 2024 15:06
== END 2024-07-05 15:31 | disposition home or self-care (01) ==
LOC: EDH 13:50
DX: S16.1XXA Strain of muscle, fascia and tendon at neck level, initial encounter (principal); S96.912A Strain of unspecified muscle and tendon at ankle and foot level, left foot, initial encounter; E11.9 Type 2 diabetes mellitus without complications; E78.00 Pure hypercholesterolemia, unspecified; F41.9 Anxiety disorder, unspecified; I11.0 Hypertensive heart disease with heart failure; I50.9 Heart failure, unspecified; Z79.82 Long term (current) use of aspirin; Z79.899 Other long term (current) drug therapy; Z91.040 Latex allergy status; W18.39XA Other fall on same level, initial encounter; Y93.89 Activity, other specified; Y92.89 Other specified places as the place of occurrence of the external cause; Y99.8 Other external cause status
CPT/HCPCS: 72040; 73600

== ENCOUNTER 2024-07-28 19:31 | Emergency (ER) | payer OTHER, MEDICARE ==
[~2024-07-28] VITALS: Ht 162.6 cm; Wt 63.5 kg
[~2024-07-28 19:31] MED LIST changes: +CARV12.580 PO; +CEFD300C3 PO; -FLUO40CA49 PO; +LISI40TA9 PO; +SERT50TA PO
[2024-07-28 20:04] LABS: BASOPHILS # (AUTO) 0.02 K/uL (0.00-0.20); BASOPHILS % (AUTO) 0.3 % (0.0-5.0); EOSINOPHILS # (AUTO) 0.03 K/uL (0.00-0.70); EOSINOPHILS % (AUTO) 0.5 % (0.0-8.0); HEMATOCRIT 36.2 % (36-48); IMMATURE GRANULOCYTE ABSOLUTE 0.04 K/uL (0-1); LYMPHOCYTES # (AUTO) 1.2 K/uL (1.0-4.8); LYMPHOCYTES % (AUTO) 19.6 % (21.0-51.0); MEAN CORPUSCULAR HEMOGLOBIN 28.3 pg (27.0-33.0); MEAN CORPUSCULAR HGB CONC 30.4 g/dL (32.0-36.0); MEAN CORPUSCULAR VOLUME 93.1 fL (79-99); MONOCYTES # (AUTO) 0.4 K/uL (0.1-1.0); MONOCYTES % (AUTO) 5.9 % (3.0-13.0); NEUTROPHILS # (AUTO) 4.4 K/uL (1.8-7.7); PLATELET COUNT (AUTO) 251 K/uL (130-400); RED BLOOD CELL COUNT(AUTO) 3.89 MIL/uL (4.00-5.50); RED CELL DISTRIBUTION WIDTH 17.8 % (11.0-15.5); WHITE BLOOD COUNT (AUTO) 6.1 K/uL (4.8-10.8)
--- NOTE | 2024-07-28 20:15 | ERN ---
General Chief Complaint: Upper Extremity Pain/Injury Stated Complaint: LEFT ARM PAIN Time Seen by MD: 19:33 Source: patient History of Present Illness Initial Comments Patient is a 38-year-old female coming in to be evaluated for left arm pain. Patient does have a history of end-stage renal disease and was recently had a Lava placed three days ago. She states that since it was placed he has been having arm pain. Allergies: Coded Allergies: Latex, Natural Rubber (Unverified Allergy, Unknown, 02/04/23) Home Meds Active Scripts Sertraline HCl (Zoloft) 50 Mg Tablet, 50 MG PO DAILY, #30 TAB 0 Refills Prov:NANCY CHENEY MD 07/26/24 Lisinopril (Lisinopril) 40 Mg Tablet, 40 MG PO DAILY, #30 TAB 0 Refills Prov:NANCY CHENEY MD 07/26/24 Carvedilol (Coreg) 12.5 Mg Tablet, 12.5 MG PO BID, #60 TAB 0 Refills Prov:NANCY CHENEY MD 07/26/24 Cefdinir (Cefdinir) 300 Mg Capsule, 1 CAP PO BID for 7 Days, #14 CAP 0 Refills Prov:KAYODE DELEON NP 07/12/24 Aspirin (ASPIRIN 81 MG ECTAB) 81 Mg Ectab, 81 MG PO DAILY, #30 TAB.EC 0 Refills Prov:NANCY CHENEY MD 06/29/24 Hydralazine HCl (Apresoline) 25 Mg Tab, 25 MG PO TID, #90 TAB 0 Refills Prov:NANCY CHENEY MD 05/04/24 Metoprolol Tartrate (Lopressor 50Mg Tab) 50 Mg Tab, 50 MG PO BID, #60 TAB Prov:HORTENCIA CALIXTO 04/11/24 Reported Medications [Magnesium Tab Qd] 250 MG No Conflict Check, DAILY 06/06/24 [Iron Tab Qd] 45 MG No Conflict Check, DAILY 06/06/24 Cyclobenzaprine HCl (Cyclobenzaprine HCl) 10 Mg Tablet, 1 TAB PO TID PRN for MUSCLE SPASMS for 10 Days, #30 TAB 0 Refills 06/06/24 Insulin Detemir (Levemir) 100 Unit/Ml Vial, 15 UNIT SQ HS, VIAL 04/30/24 Metoclopramide HCl (Metoclopramide HCl) 10 Mg Tablet, 10 MG PO QIDP PRN for nausea/vomiting 04/10/24 Sodium Bicarbonate (Sodium Bicarbonate) 650 Mg Tablet, 1 TAB PO TID 04/10/24 Atorvastatin Calcium (Atorvastatin Calcium) 40 Mg Tablet, 1 TAB PO HS 04/10/24 Discontinued Reported Medications Fluoxetine HCl (Fluoxetine HCl) 40 Mg Capsule, 1 CAP PO HS 04/10/24 Past Medical History Past Medical History: Anemia, Anxiety, CHF, Diabetes-Type II, Glaucoma, High Cholesterol, Hypertension, Renal Disese, Renal Failure Medical History Other: GLAUCOMA, BLIND Past Surgical History: Other, Surgical History Other: AMPUTATIONS, BACK Family History Family History: Negative Social History Social History: Negative Female( History) History: Not Applicable ROS Dictation CONSTITUTIONAL: No chills, no fever, no weakness, no diaphoresis, no malaise. HEAD/FACE: No signs of trauma. EENT: No eye pain, no blurred vision, no tearing, no double vision, no ear pain, no ear discharge, no nose pain, no nasal congestion, no throat pain, no throat swelling, no mouth pain. RESPIRATORY: No cough, no orthopnea, no SOB, no stridor, no wheezing. CARDIOVASCULAR: No chest pain, no edema, no palpitations, no syncope. GASTROINTESTINAL/ABDOMINAL: No abdominal pain, no constipation, no diarrhea, no nausea, no vomiting. GENITOURINARY: No abnormal discharge, no dysuria, no frequent urination, no hematuria. No complaints of pain in the genitals. MUSCULOSKELETAL: No back pain, no gout, no joint pain, no joint swelling, no muscle pain, no muscle stiffness, no neck pain. INTEGUMENTARY: No change in color, no change in hair/nails, no dryness, no lesion, no lumps, no rash. NEUROLOGICAL/PSYCH: No anxiety, not depressed, no emotional problem, no headache, no numbness, no pre-existing deficit, no history of seizures, no tremors, no weakness. HEMATOLOGIC/LYMPHATIC: Not anemic, no history of blood clots, no apparent bleeding, no bruising, glands not swollen. All Systems Negative, Except as Noted. Physical Exam Physical Exam Dictation VITAL SIGNS: Reviewed. GENERAL APPEARANCE: Alert, oriented x3, no acute distress, obese. HEAD AND FACE: Non-traumatic. EYES: PERRL, pink conjunctivas, eyelid no trauma, anterior chamber clear. EARS: Pinnas intact and no signs of trauma or erythema. Ear canals clear and no discharge. TMs no erythema. NOSE: No discharge, no bleeding. OROPHARYNX: Mouth normal, teeth no caries, tongue pink. Pharynx clear, no erythema. Tonsils no exudates, no abscesses noted. Mucous membrane moist. NECK: Supple, non-tender, no thyromegaly, no masses, no JVD, no bruits. BREAST: Deferred. CHEST: No tenderness, no crepitus, no paradoxical movement, no retractions. LUNGS: Clear, well-ventilated, symmetric, no rales, no wheezing, no rhonchi, no stridor, good breath sounds bilaterally. HEART: Regular rate, regular rhythm, no murmur, no gallops. VASCULAR: No peripheral edema. ABDOMEN: Soft, positive bowel sounds, nondistended, no guarding, nontender, no rebound, no masses no hepatomegaly, no splenomegaly, no Mandujano's sign, no hernias. RECTAL: Deferred. GENITAL: Deferred. NEUROLOGICAL: Normal speech, gross motor function intact, gross sensory function intact. MUSCULOSKELETAL: Neck nontender, full range of motion, back nontender, full range of motion. EXTREMITIES: Nontender, full range of motion. Left arm discomfort, Lava in place SKIN: Color pink, dry, no turgor, no rash, no lacerations, no abrasions, no contusions. LYMPHATICS: Deferred. Results Laboratory and Microbiology Lab and Micro Result Laboratory Tests Test 07/28/24 19:45 07/28/24 20:31 White Blood Count 6.1 K/uL (4.8-10.8) Red Blood Count 3.89 MIL/uL (4.00-5.50) L Hemoglobin 11.0 g/dL (12.0-16.0) L Hematocrit 36.2 % (36-48) # Mean Corpuscular Volume 93.1 fL (79-99) Mean Corpuscular Hemoglobin 28.3 pg (27.0-33.0) Mean Corpuscular Hemoglobin Concent 30.4 g/dL (32.0-36.0) L Red Cell Distribution Width 17.8 % (11.0-15.5) H Platelet Count 251 K/uL (130-400) Mean Platelet Volume 11.1 fL (7.5-10.5) H Immature Granulocyte % (Auto) 0.7 % (0-1) Neutrophils (%) (Auto) 73.0 % (40.0-77.0) Lymphocytes (%) (Auto) 19.6 % (21.0-51.0) L Monocytes (%) (Auto) 5.9 % (3.0-13.0) Eosinophils (%) (Auto) 0.5 % (0.0-8.0) Basophils (%) (Auto) 0.3 % (0.0-5.0) Neutrophils # (Auto) 4.4 K/uL (1.8-7.7) Lymphocytes # (Auto) 1.2 K/uL (1.0-4.8) Monocytes # (Auto) 0.4 K/uL (0.1-1.0) Eosinophils # (Auto) 0.03 K/uL (0.00-0.70) Basophils # (Auto) 0.02 K/uL (0.00-0.20) Absolute Immature Granulocyte (auto 0.04 K/uL (0-1) Nucleated Red Blood Cells 0.0 % (0.0-0.19) Sodium Level 135 mmol/L (136-145) L Potassium Level 3.9 mmol/L (3.5-5.1) Chloride Level 102 mmol/L (101-111) Carbon Dioxide Level 32 mmol/L (21-32) Blood Urea Nitrogen 20 mg/dL (7-18) H Creatinine 3.7 mg/dL (0.5-1.0) H Glomerular Filtration Rate Calc 15 mL/min (>90) Random Glucose 312 mg/dL (70-105) H Total Calcium 7.9 mg/dL (8.5-10.1) L Labs Reviewed?: Yes EKG/XRAY/US/CT/MRI Ultrasound Comment Ultrasound upper extremity-NAD MDM MDM: Differential diagnosis: Arm pain, status post lava Patient is a 38-year-old female coming in to be evaluated for a Lava placement discomfort. She states that the pain has been ongoing for three days. Laboratory workup and ultrasound did not disclose acute findings. I advised her appropriate follow up with surgeon and her PCP to continue monitoring symptoms. Patient will be discharged in stable condition. ED Course Orders Procedure Category Date Status Time Cbc With Differential LAB 07/28/24 Complete 19:43 Us Venous Doppler US 07/28/24 Taken Unilateral 19:43 Basic Metabolic Panel LAB 07/28/24 Complete 20:08 Acetaminophen 500mg PHA 07/28/24 In Process Tab (Tylenol 500mg T 21:30 Current Medications Medications (Trade) Dose Ordered Sig/Madhavi Route PRN Reason Start Time Stop Time Status Last Admin Dose Admin Acetaminophen (TYLenol 500MG TAB) 1,000 mg ONCE ONCE PO 07/28/24 21:30 07/28/24 21:31 07/28/24 21:21 Vital Signs Date Time Temp Pulse Resp B/P (MAP) Pulse Ox O2 Delivery O2 Flow Rate FiO2 07/28/24 19:57 98.1 83 18 114/51 100 Room Air* 0 21 07/28/24 19:32 97.5 82 16 106/67 99 Room Air DX & DISP Disposition: Discharge Departure Impression: Primary Impression: Encounter for evaluation of wound Condition: Stable Additional Instructions: FOLLOW-UP WITH PRIMARY CARE PROVIDER IN 1 TO 2 DAYS. TAKE MEDICATIONS DIRECTED HERE IN THE EMERGENCY ROOM. OKAY TO CONTINUE HOME MEDICATIONS UNLESS OTHERWISE DISCUSSED DURING YOUR VISIT IN THE EMERGENCY ROOM TODAY. RETURN TO YOUR NEAREST EMERGENCY ROOM IF SYMPTOMS WORSEN OR IF THERE IS NO IMPROVEMENT. CALL 911 IF YOU NEED IMMEDIATE ASSISTANCE. TAKE TYLENOL [id number] NEEDED AND IF NO CONTRAINDICATIONS ARE PRESENT. INCREASE ORAL HYDRATION. A WOUND CULTURE OR URINE CULTURE WAS ORDERED HERE IN THE EMERGENCY ROOM DEPARTMENT PLEASE FOLLOW-UP WITH PRIMARY CARE PROVIDER AND ADVISE THEM TO GET REPEAT PORTS FROM OUR FACILITY. IF YOU HAD ANY DEANA WRAP/SPLINTS THAT WERE APPLIED HERE, PLEASE DO NOT REMOVE THEM UNTIL YOU SEE YOUR PRIMARY CARE OR SPECIALTY. Referrals: Referrals: SELF,REFERRAL (PCP) OC BANGURA MD Time of Disposition: 21:34 TRACY JACK MD Jul 28, 2024 20:15
[2024-07-28 20:47] LABS: CREATININE 3.7 mg/dL (0.5-1.0); POTASSIUM 3.9 mmol/L (3.5-5.1)
[2024-07-28] MEDS: acetaMINOPHEN 500 MG TABLET PO ONE (21:21)
--- NOTE | 2024-07-28 21:31 | HMCIMG ---
US VENOUS DOPPLER UNILATERAL HISTORY: Abdominal pain COMPARISON: None TECHNIQUE: Left upper extremity venous Doppler ultrasound study was performed. FINDINGS: The left subclavian, axillary, and brachial veins are visualized. Normal flow with augmentation and compressibilities are demonstrated. Left cephalic and basilic veins are patent. IMPRESSION: 1. No evidence of deep venous thrombosis is seen.
[2024-07-28] MEDS: ketOROlac 15MG/ML VIAL (15MG/ML) IM ONE (22:24)
[2024-07-28 22:27] VITALS: BP 120/62; PULSE 88; RESP 18; TEMP 98.1; O2SAT 99
--- NOTE | 2024-07-28 22:32 | NUR ---
UNABLE TO FIND PT'S IN THE LOBBY, UNABLE TO REACH HIM OVER THE PHONE WELL INFORMED PT SHE IS HAPPY TO GO HOME ANYWAY
--- NOTE | 2024-07-29 05:19 | NUR ---
PATIENTS SPOUSE CELL PHONE IS NOT ACCEPTING CALLS, NO ANSWER ON PHONE IN HOTEL ROOM. PATIENT IS STAYING AT [place] [address] IN [place], REGISTERED UNDER PATIENT NAME, PHONE [phone], NO ANSWER WHEN ROOM IS CALLED
--- NOTE | 2024-07-29 05:24 | NUR ---
SPOUSE CALL PLACED TO [place] [id number] [facility] PT. STATES SHE RESIDES. HER GIVEN ADDRESS IS [address] [place] [address]. SHE STATES SHE DOES NOT LIVE THERE--ONLY RECEIVES MAIL AT THAT ADDRESS. [facility] PHONE NUMBER: [phone]. NO ANSWER AT THIS TIME.
--- NOTE | 2024-07-29 05:30 | NUR ---
[employer] [facility] CALL PLACED TO HOTEL--CLINICAL ANALYST STATES THAT HE WOKE UP THE AND THE SON. THEY ARE ON THEIR WAY TO [employer] THE PT. THE PHONE WAS TURNED OFF, "BECAUSE YOU KNOW WE HAD TO SLEEP."
--- NOTE | 2024-07-29 06:00 | NUR ---
FAMILY FAMILY HAS PICKED UP THE PATIENT AND THEY HAVE LEFT THE PROPERTY VIA PRIVATE CAR
== END 2024-07-28 22:32 | disposition home or self-care (01) ==
LOC: EDH 19:31
DX: M79.602 Pain in left arm (principal); I13.2 Hypertensive heart and chronic kidney disease with heart failure and with stage 5 chronic kidney disease, or end stage renal disease; E11.22 Type 2 diabetes mellitus with diabetic chronic kidney disease; I50.9 Heart failure, unspecified; N18.6 End stage renal disease; E78.00 Pure hypercholesterolemia, unspecified; F41.9 Anxiety disorder, unspecified; Z79.82 Long term (current) use of aspirin; Z79.899 Other long term (current) drug therapy; Z91.040 Latex allergy status
CPT/HCPCS: 99285; 93971; 80048; 85025; 36415; 96372; J1885

== ENCOUNTER 2024-08-06 21:58 | Emergency (ER) | payer OTHER, MEDICARE ==
[~2024-08-06] VITALS: Ht 162.6 cm; Wt 63.5 kg
[~2024-08-06 21:58] MED LIST changes: +ACET-3859 PO; +GABA-529 PO
--- NOTE | 2024-08-06 22:21 | NUR ---
PER REVIEW OF EMR, NOTE MADE BY BEAU CABRAL ON 08/03/24 APPEARS PT HD DAYS MAY BE //THU. PRIOR TO ADMISSION 08/02/24, PT MISSED HD PREVIOUS THURSDAY AND THURSDAY. PER NOTE MADE BY FRANKIE GARDUNO ON 08/05/[address] HD PROVID[address] MAY BE DR DIANA AND OR DR EDWARDS
[2024-08-06] MEDS: ondanSETRON 4MG INJ IVP ONE (22:54)
[2024-08-06] MEDS: LACTATED RINGERS 1000ML 1,000 ML IV ONE (22:54)
[2024-08-06] MEDS: morPHINE 2 MG SYG IVP ONE (22:55)
[2024-08-06 22:57] LABS: BASOPHILS # (AUTO) 0.02 K/uL (0.00-0.20); BASOPHILS % (AUTO) 0.3 % (0.0-5.0); EOSINOPHILS # (AUTO) 0.01 K/uL (0.00-0.70); EOSINOPHILS % (AUTO) 0.1 % (0.0-8.0); HEMATOCRIT 36.7 % (36-48); IMMATURE GRANULOCYTE ABSOLUTE 0.05 K/uL (0-1); LYMPHOCYTES # (AUTO) 1.5 K/uL (1.0-4.8); LYMPHOCYTES % (AUTO) 21.9 % (21.0-51.0); MEAN CORPUSCULAR HEMOGLOBIN 28.2 pg (27.0-33.0); MEAN CORPUSCULAR HGB CONC 31.3 g/dL (32.0-36.0); MONOCYTES # (AUTO) 0.5 K/uL (0.1-1.0); MONOCYTES % (AUTO) 6.8 % (3.0-13.0); NEUTROPHILS # (AUTO) 4.9 K/uL (1.8-7.7); NEUTROPHILS % (AUTO) 70.2 % (40.0-77.0); PLATELET COUNT (AUTO) 217 K/uL (130-400); RED BLOOD CELL COUNT(AUTO) 4.08 MIL/uL (4.00-5.50); RED CELL DISTRIBUTION WIDTH 15.4 % (11.0-15.5)
[2024-08-06 23:15] LABS: CREATININE 3.4 mg/dL (0.5-1.0)
[2024-08-07] MEDS: LACTATED RINGERS 1000ML 546 ML IV ONE (00:03)
[2024-08-07] MEDS: INSULIN LISpro 100 UNIT/ML 3ML SQ ONE ×2 (00:06→01:11)
[2024-08-07] MEDS: hydrALAZine 20MG/ML VIAL IV ONE (00:07)
--- NOTE | 2024-08-07 00:46 | ERN ---
General Chief Complaint: Nausea,Vomiting,Diarrhea Stated Complaint: N/V/D Time Seen by MD: 22:19 History of Present Illness Initial Comments Ms. Cooper is a very pleasant 39-year-old female significant past medical history of type 2 diabetes essential hypertension is end-stage renal disease who presents today with a chief complaint of weakness. Patient was recently in the hospital for volume overload and missing dialysis. Patient was dialyzed since discharged on 08/05/2024. Patient comes in with a worsening Allergies: Coded Allergies: Latex, Natural Rubber (Unverified Allergy, Unknown, 02/04/23) Home Meds Active Scripts Acetaminophen (Acetaminophen) 325 Mg Tablet, 1 TAB PO Q4HPRN PRN for pain or fever for 24 Days, #100 TAB 0 Refills Prov:RFANKIE MORENO MD 08/05/24 Gabapentin (Gabapentin) 100 Mg Capsule, 1 CAP PO TID for 30 Days, #30 CAP 0 Refills Prov:FRANKIE MORENO MD 08/05/24 Sertraline HCl (Zoloft) 50 Mg Tablet, 50 MG PO DAILY, #30 TAB 0 Refills Prov:NANCY CHENEY MD 07/26/24 Lisinopril (Lisinopril) 40 Mg Tablet, 40 MG PO DAILY, #30 TAB 0 Refills Prov:NANCY CHENEY MD 07/26/24 Carvedilol (Coreg) 12.5 Mg Tablet, 12.5 MG PO BID, #60 TAB 0 Refills Prov:NANCY CHENEY MD 07/26/24 Cefdinir (Cefdinir) 300 Mg Capsule, 1 CAP PO BID for 7 Days, #14 CAP 0 Refills Prov:KAYODE DELEON NP 07/12/24 Aspirin (ASPIRIN 81 MG ECTAB) 81 Mg Ectab, 81 MG PO DAILY, #30 TAB.EC 0 Refills Prov:NANCY CHENEY MD 06/29/24 Hydralazine HCl (Apresoline) 25 Mg Tab, 25 MG PO TID, #90 TAB 0 Refills Prov:NANCY CHENEY MD 05/04/24 Metoprolol Tartrate (Lopressor 50Mg Tab) 50 Mg Tab, 50 MG PO BID, #60 TAB Prov:HORTENCIA CALIXTO 04/11/24 Reported Medications [Magnesium Tab Qd] 250 MG No Conflict Check, DAILY 06/06/24 [Iron Tab Qd] 45 MG No Conflict Check, DAILY 06/06/24 Cyclobenzaprine HCl (Cyclobenzaprine HCl) 10 Mg Tablet, 1 TAB PO TID PRN for MUSCLE SPASMS for 10 Days, #30 TAB 0 Refills 06/06/24 Insulin Detemir (Levemir) 100 Unit/Ml Vial, 15 UNIT SQ HS, VIAL 04/30/24 Metoclopramide HCl (Metoclopramide HCl) 10 Mg Tablet, 10 MG PO QIDP PRN for nausea/vomiting 04/10/24 Sodium Bicarbonate (Sodium Bicarbonate) 650 Mg Tablet, 1 TAB PO TID 04/10/24 Atorvastatin Calcium (Atorvastatin Calcium) 40 Mg Tablet, 1 TAB PO HS 04/10/24 Past Medical History Past Medical History: Anemia, Anxiety, CHF, Diabetes-Type II, Glaucoma, High Cholesterol, Hypertension, Renal Disese, Renal Failure Medical History Other: GLAUCOMA, BLIND, NON COMPLIANT WITH HOME MEDICATIONS Past Surgical History: Other, Surgical History Other: AMPUTATIONS, BACK Family History Family History: Negative Social History Social History: Negative Female( History) History: Not Applicable ROS Dictation Constitutional: Negative for fever,chills, and weight loss Eyes: Negative for injury, pain,redness, and discharge ENT: Negative for injury,pain or swelling Cardiovascular: Negative for chest pain, palpitations, and edema Respiratory: Negative for shortness of breath, cough, and wheezing, Abdomen/GI: Positive for nausea vomiting Back: Negative for injury and pain : Negative for injury, bleeding and discharge MS/Extremity: Negative for injury and deformity Skin: Negative for rash, and discoloration Neuro: Negative for headache, weakness, numbness, tingling, and seizure Psych: Negative for suicide ideation, homicidal ideation, and hallucinations Physical Exam Physical Exam Dictation General: Lethargic female Head/Face: Normocephalic, atraumatic Eyes: PERRL ENT: oral cavity clear Neck: Trachea midline, supple Cardiovascular: RRR, normal S1/S2, Respiratory: CTAB, no respiratory distress, No rales or wheezes Abdomen: Soft, non-tender, non-distended, normal bowel Skin: Warm, dry, normal turgor, no rash MS/Extremity: Pulses equal, no cyanosis, neurovascular intact, FROM Neuro: COAx4, GCS 15, strength 5/5, CN 2-12 intact Psych: Normal behavior, mood, and affect normal Results Laboratory and Microbiology Lab and Micro Result Laboratory Tests Test 08/06/24 22:49 White Blood Count 7.0 K/uL (4.8-10.8) Red Blood Count 4.08 MIL/uL (4.00-5.50) Hemoglobin 11.5 g/dL (12.0-16.0) L Hematocrit 36.7 % (36-48) Mean Corpuscular Volume 90.0 fL (79-99) Mean Corpuscular Hemoglobin 28.2 pg (27.0-33.0) Mean Corpuscular Hemoglobin Concent 31.3 g/dL (32.0-36.0) L Red Cell Distribution Width 15.4 % (11.0-15.5) Platelet Count 217 K/uL (130-400) Mean Platelet Volume 10.6 fL (7.5-10.5) H Immature Granulocyte % (Auto) 0.7 % (0-1) Neutrophils (%) (Auto) 70.2 % (40.0-77.0) Lymphocytes (%) (Auto) 21.9 % (21.0-51.0) Monocytes (%) (Auto) 6.8 % (3.0-13.0) Eosinophils (%) (Auto) 0.1 % (0.0-8.0) Basophils (%) (Auto) 0.3 % (0.0-5.0) Neutrophils # (Auto) 4.9 K/uL (1.8-7.7) Lymphocytes # (Auto) 1.5 K/uL (1.0-4.8) Monocytes # (Auto) 0.5 K/uL (0.1-1.0) Eosinophils # (Auto) 0.01 K/uL (0.00-0.70) Basophils # (Auto) 0.02 K/uL (0.00-0.20) Absolute Immature Granulocyte (auto 0.05 K/uL (0-1) Nucleated Red Blood Cells 0.0 % (0.0-0.19) Sodium Level 141 mmol/L (136-145) Potassium Level 4.0 mmol/L (3.5-5.1) Chloride Level 104 mmol/L (101-111) Carbon Dioxide Level 34 mmol/L (21-32) H Blood Urea Nitrogen 17 mg/dL (7-18) Creatinine 3.4 mg/dL (0.5-1.0) H Glomerular Filtration Rate Calc 17 mL/min (>90) Random Glucose 435 mg/dL (70-105) *H Total Calcium 8.1 mg/dL (8.5-10.1) L Amylase Level 28 U/L (25-115) Lipase 11 U/L (16-77) L MDM Patient was blood sugars now to 201 after insulin. Patient will be discharged MDM: Differential diagnosis: Hyperglycemia Rationale: Tests considered and ordered secondary to shared decision making include: Previous outside records reviewed: Old ER visits. Risk of complication and/or morbidity or mortality of patient management: None Medications-Per medication reconciliation Need for hospitalization: Patient does not meet criteria for hospitalization. Need for emergency major/minor surgery: No There are no social concerns with this patient. Prescription drug management Prescriptions will include symptomatic care Patient's prior external medical records from other ER visits were reviewed by me as indicated. Prior testing and results from previous visits were reviewed. Prior tests were taken into account with medical decision making and resource utilization, independent historian/historians were used to obtain complete medical history. I independently interpreted the test that were performed, results were reviewed by me and considered findings on radiology if ordered. Medical management and examination interpretation discussions were had by me with other qualified healthcare professionals as indicated for the patient's care. ED Course Orders Procedure Category Date Status Time Cbc With Differential LAB 08/06/24 Complete 22:24 Amylase LAB 08/06/24 Complete 22:24 Lactated Ringers PHA 08/06/24 Complete 1000ml (Lactated 22:30 Morphine 2mg Syg PHA 08/06/24 Complete (Morphine 2mg Syg) 22:30 Ondansetron 4mg Inj PHA 08/06/24 Complete (Zofran 4mg Inj) 22:30 Chest 1vw RAD 08/06/24 Taken 22:24 Lipase LAB 08/06/24 Complete 22:24 Basic Metabolic Panel LAB 08/06/24 Complete 22:24 Lactated Ringers PHA 08/07/24 In Process 1000ml (Lactated 00:00 Insulin Lispro 100 PHA 08/07/24 Complete Unit/Ml 3ml (Humalog 00:00 Hydralazine 20mg Inj PHA 12/8/24 Complete (Apresoline 20mg In 00:30 Insulin Lispro 100 PHA 08/07/24 Complete Unit/Ml 3ml (Humalog 01:30 Current Medications Medications (Trade) Dose Ordered Sig/Madhavi Route PRN Reason Start Time Stop Time Status Last Admin Dose Admin Hydralazine HCl (APRESOLine 20MG INJ) 20 mg ONCE ONCE IV 08/07/24 00:30 08/07/24 00:31 DC 08/07/24 00:07 Insulin Human Lispro (HumaLOG LISpro 100 UNIT/ML 3ML) 10 unit ONCE ONCE SQ 08/07/24 01:30 08/07/24 01:31 DC 08/07/24 01:11 Insulin Human Lispro (HumaLOG LISpro 100 UNIT/ML 3ML) 15 unit ONCE ONCE SQ 08/07/24 00:00 08/07/24 00:01 DC 08/07/24 00:06 Lactated Ringer's 546 ml @ 182 mls/hr ONCE ONCE IV 08/07/24 00:00 08/07/24 02:59 Lactated Ringer's 1,000 ml @ 0 mls/hr ONCE ONCE IV 08/06/24 22:30 08/06/24 22:44 DC 08/06/24 22:54 Morphine Sulfate (morPHINE 2MG SYG) 2 mg ONCE ONCE IVP 08/06/24 22:30 08/06/24 22:44 DC 08/06/24 22:55 Ondansetron HCl (zoFRAN 4MG INJ) 4 mg ONCE ONCE IVP 08/06/24 22:30 08/06/24 22:44 DC 08/06/24 22:54 Vital Signs Date Time Temp Pulse Resp B/P (MAP) Pulse Ox O2 Delivery O2 Flow Rate FiO2 08/07/24 00:58 97.0 87 20 110/68 100 Room Air* 0 21 08/06/24 23:59 97.0 86 20 185/74 100 Room Air* 0 21 08/06/24 22:57 97.0 86 20 153/72 100 Room Air* 0 21 08/06/24 22:00 97.0 86 20 195/113 99 Room Air DX & DISP Disposition: Discharge Departure Impression: Primary Impression: Uncontrolled diabetes mellitus with hyperglycemia Condition: Stable Additional Instructions: Please follow up with your primary care physician in the next 1-7 days for co ntinuance of care Referrals: SELF,REFERRAL (PCP) ELBA NIELSEN MD Aug 07, 2024 00:46
[2024-08-07 01:45] VITALS: BP 112/70; PULSE 86; RESP 20; TEMP 97; O2SAT 100
--- NOTE | 2024-08-07 01:47 | NUR ---
FAMILY MADE AWARE THAT PATIENT IS READY TO BE DC AND PICKED UP FOR HOME TRASNPORTATION
--- NOTE | 2024-08-07 08:31 | HMCIMG ---
CHEST 1VW REASON: sob COMPARISON: 08/05/2024 FINDINGS: Bibasilar infiltrates. There are completely cleared. Lungs are otherwise unremarkable. Heart size is normal with no vascular congestion. There is a dialysis catheter in place. IMPRESSION: 1. Near complete clearing of bibasilar infiltrates.
[2024-08-24] MEDS ORDERED: HYDR25TA67 PO (10:47)
== END 2024-08-07 01:50 | disposition home or self-care (01) ==
LOC: EDH 21:58
DX: E11.65 Type 2 diabetes mellitus with hyperglycemia (principal); I13.2 Hypertensive heart and chronic kidney disease with heart failure and with stage 5 chronic kidney disease, or end stage renal disease; I50.9 Heart failure, unspecified; E11.22 Type 2 diabetes mellitus with diabetic chronic kidney disease; N18.6 End stage renal disease; E78.00 Pure hypercholesterolemia, unspecified; F41.9 Anxiety disorder, unspecified; Z79.82 Long term (current) use of aspirin; Z79.899 Other long term (current) drug therapy; Z91.040 Latex allergy status; Z98.890 Other specified postprocedural states
CPT/HCPCS: 99285; 96374; 71045; 96361; 96375 ×2; 82150; 80048; 83690; 85025; 82948; 36415; J7120; J2270; J2405; J0360

== ENCOUNTER 2024-08-17 01:13 | Emergency (ER) | payer OTHER, MEDICARE ==
[~2024-08-17] VITALS: Ht 162.6 cm; Wt 63.5 kg
--- NOTE | 2024-08-17 01:54 | ERN ---
ED Note History of Present Illness Stated Complaint: C/O ABD PAIN WITH N X V X DIARRHEA, BACK PAIN Chief Complaint: Abdominal Pain Time Seen by MD: 01:36 Dictation: This is a 39-year-old female with known history of multiple medical problems frequent ER visits comes in stating that she was in the [facility] Emergency room for nausea vomitings and diarrhea. She was evaluated and received an antibiotic and she was released stating that she should get the next dose . Her last hemodialysis was on Thursday which is 2 days ago. She stated that even though they have discharged her she did not feel well and was continuing to have diarrhea as well as severe back pain and hence she came over to [facility] for evaluation. Continues to have nausea and vom itings mostly stomach contents and abdominal pain and mid back pain along with diarrhea. No other family members are sick. No hematemesis or melena She is known to be noncompliant with treatments. Temperature 98.6 pulse 104 respirations 20 blood pressure 179/89 with a pulse oximetry of 100% on room air Chronic medical problems include end-stage renal disease on hemodialysis Thursday, diabetes mellitus, hypertension, congestive heart failure, hypercholesterolemia, chronic anemia and history of left foot 2nd and 3rd toe amputations. Allergies: Coded Allergies: Latex, Natural Rubber (Unverified Allergy, Unknown, 02/04/23) Home Meds Active Scripts Acetaminophen with Codeine (Acetaminophen-Cod #3 Tablet) 300 Mg-30 Mg Tablet, 1 TAB PO Q6HPRN PRN for pain for 7 Days, #28 TAB 0 Refills Prov:FINN FLOWERS MD 08/17/24 Ondansetron (Ondansetron Odt) 4 Mg Tab.rapdis, 4 MG PO q8 PRN for nausea, #16 TAB 0 Refills Prov:FINN FLOWERS MD 08/17/24 Loperamide HCl (Imodium 2 mg Cap) 2 Mg Capsule, 2 CAP PO Q6H for loose stool for 5 Days, #40 CAP 0 Refills Prov:FINN FLOWERS MD 08/17/24 Acetaminophen (Acetaminophen) 325 Mg Tablet, 1 TAB PO Q4HPRN PRN for pain or fever for 24 Days, #100 TAB 0 Refills Prov:FRANKIE MORENO MD 08/05/24 Gabapentin (Gabapentin) 100 Mg Capsule, 1 CAP PO TID for 30 Days, #30 CAP 0 Refills Prov:FRANKIE MORENO MD 08/05/24 Sertraline HCl (Zoloft) 50 Mg Tablet, 50 MG PO DAILY, #30 TAB 0 Refills Prov:NANCY CHENEY MD 07/26/24 Lisinopril (Lisinopril) 40 Mg Tablet, 40 MG PO DAILY, #30 TAB 0 Refills Prov:NANCY CHENEY MD 07/26/24 Carvedilol (Coreg) 12.5 Mg Tablet, 12.5 MG PO BID, #60 TAB 0 Refills Prov:NANCY CHENEY MD 07/26/24 Cefdinir (Cefdinir) 300 Mg Capsule, 1 CAP PO BID for 7 Days, #14 CAP 0 Refills Prov:KAYODE DELEON NP 07/12/24 Aspirin (ASPIRIN 81 MG ECTAB) 81 Mg Ectab, 81 MG PO DAILY, #30 TAB.EC 0 Refills Prov:NANCY CHENEY MD 06/29/24 Hydralazine HCl (Apresoline) 25 Mg Tab, 25 MG PO TID, #90 TAB 0 Refills Prov:NANCY CHENEY MD 05/04/24 Metoprolol Tartrate (Lopressor 50Mg Tab) 50 Mg Tab, 50 MG PO BID, #60 TAB Prov:HORTENCIA CALIXTO CREEL CLERK 04/11/24 Reported Medications [Magnesium Tab Qd] 250 MG No Conflict Check, DAILY 06/06/24 [Iron Tab Qd] 45 MG No Conflict Check, DAILY 06/06/24 Cyclobenzaprine HCl (Cyclobenzaprine HCl) 10 Mg Tablet, 1 TAB PO TID PRN for MUSCLE SPASMS for 10 Days, #30 TAB 0 Refills 06/06/24 Insulin Detemir (Levemir) 100 Unit/Ml Vial, 15 UNIT SQ HS, VIAL 04/30/24 Metoclopramide HCl (Metoclopramide HCl) 10 Mg Tablet, 10 MG PO QIDP PRN for nausea/vomiting 04/10/24 Sodium Bicarbonate (Sodium Bicarbonate) 650 Mg Tablet, 1 TAB PO TID 04/10/24 Atorvastatin Calcium (Atorvastatin Calcium) 40 Mg Tablet, 1 TAB PO HS 04/10/24 Past Medical History Past Medical History: Anemia, CHF, Diabetes-Type II, High Cholesterol, Hypertension, Renal Failure, Other Additional Past Medical Hx: GLAUCOMA,NEUROPATHY Surgical History: Other Surgical History Other: LEFT 2ND AND 3RD TOE AMPUTATION Family History: Negative Social History: Negative History: Not Applicable RN Note Reviewed/Agreed w/PFSH: Yes Review of System Dictation Constitutional: Negative for fever,chills, and weight loss Eyes: Negative for injury, pain,redness, and discharge ENT: Negative for injury,pain or swelling Cardiovascular: Negative for chest pain, palpitations, and edema Respiratory: Negative for shortness of breath, cough, and wheezing, Abdomen/GI: Positive for abdominal pain, nausea, vomiting, diarrhea, Back: Negative for injury and positive for interscapular and upper thoracic pain : Negative for injury, bleeding and discharge MS/Extremity: Negative for injury and deformity Skin: Negative for rash, and discoloration Neuro: Negative for headache, weakness, numbness, tingling, and seizure Psych: Negative for suicide ideation, homicidal ideation, and hallucinations Initial Vital Sign VS Vital Signs Date Time Temp Pulse Resp B/P (MAP) Pulse Ox O2 Delivery O2 Flow Rate FiO2 08/17/24 01:16 98.6 104 179/89 100 Room Air Physical Exam Dictation General: awake, alert, NAD chronically ill-appearing uncomfortable from the back pain Head/Face: Normocephalic, atraumatic Eyes: PERRL, EOMI, vision at baseline ENT: oral cavity clear, TMs clear, no signs of infection Neck: Trachea midline, supple, no nuchal rigidity Cardiovascular: RRR, normal S1/S2, No MRGs, no JVD Respiratory: CTAB, no respiratory distress, No rales or wheezes Abdomen: Soft, non-tender, non-distended, normal bowel sounds, no guarding or rebound. Skin: Warm, dry, normal turgor, no rash MS/Extremity: Pulses equal, no cyanosis, neurovascular intact, FROM, tenderness in the mid back and lower back area Neuro: COAx4, GCS 15, strength 5/5, CN 2-12 intact, normal cerebellar exam, normal gait, Psych: Normal behavior, mood, and affect normal Extremities-trace edema without any palpable cords, Homans sign is negative Results (Laboratory/Radiology) Laboratory/Radiology Laboratory Tests Test 08/17/24 02:10 08/17/24 03:55 White Blood Count 8.3 K/uL (4.8-10.8) Red Blood Count 3.68 MIL/uL (4.00-5.50) L Hemoglobin 10.4 g/dL (12.0-16.0) L Hematocrit 33.6 % (36-48) L Mean Corpuscular Volume 91.3 fL (79-99) Mean Corpuscular Hemoglobin 28.3 pg (27.0-33.0) Mean Corpuscular Hemoglobin Concent 31.0 g/dL (32.0-36.0) L Red Cell Distribution Width 14.9 % (11.0-15.5) Platelet Count 159 K/uL (130-400) Mean Platelet Volume 10.8 fL (7.5-10.5) H Immature Granulocyte % (Auto) 2.3 % (0-1) H Neutrophils (%) (Auto) 68.3 % (40.0-77.0) Lymphocytes (%) (Auto) 17.9 % (21.0-51.0) L Monocytes (%) (Auto) 9.8 % (3.0-13.0) Eosinophils (%) (Auto) 1.1 % (0.0-8.0) Basophils (%) (Auto) 0.6 % (0.0-5.0) Neutrophils # (Auto) 5.7 K/uL (1.8-7.7) Lymphocytes # (Auto) 1.5 K/uL (1.0-4.8) Monocytes # (Auto) 0.8 K/uL (0.1-1.0) Eosinophils # (Auto) 0.09 K/uL (0.00-0.70) Basophils # (Auto) 0.05 K/uL (0.00-0.20) Absolute Immature Granulocyte (auto 0.19 K/uL (0-1) Nucleated Red Blood Cells 0.0 % (0.0-0.19) Red Blood Cell Morphology See comments Sodium Level 133 mmol/L (136-145) L Potassium Level 4.6 mmol/L (3.5-5.1) Chloride Level 101 mmol/L (101-111) Carbon Dioxide Level 29 mmol/L (21-32) Blood Urea Nitrogen 27 mg/dL (7-18) H Creatinine 4.0 mg/dL (0.5-1.0) H Glomerular Filtration Rate Calc 14 mL/min (>90) Random Glucose 466 mg/dL (70-105) *H Total Calcium 7.9 mg/dL (8.5-10.1) L Lipase 16 U/L (16-77) Serum Test, Qualitative NEGATIVE (NEGATIVE) Whole Blood Glucose 325 MG/DL (70-110) H Labs Reviewed?: Yes ED Course ED Course Orders Procedure Category Date Status Time Cbc With Differential LAB 08/17/24 Complete 01:40 Urinalysis Profile LAB 08/17/24 Logged 01:40 Morphine 2mg Syg PHA 08/17/24 Complete (Morphine 2mg Syg) 02:00 Ondansetron 4mg Inj PHA 08/17/24 Complete (Zofran 4mg Inj) 02:00 Lipase LAB 08/17/24 Complete 01:40 Basic Metabolic Panel LAB 08/17/24 Complete 01:40 0.9% Nacl 250ml (Ns PHA 08/17/24 Complete 250ml) 02:00 Testing, LAB 08/17/24 Complete Serum Hcg 02:24 0.9% Nacl 500ml PHA 08/17/24 Complete Iv.Soln (Ns 500ml 03:00 Insulin Regular, PHA 08/17/24 Complete Human 3ml (Humulin R 03:00 Hydromorphone 1 Mg PHA 08/17/24 Complete Inj (Dilaudid 1mg Inj 04:00 Hydromorphone 1 Mg PHA 08/17/24 Complete Inj (Dilaudid 1mg Inj 03:36 Hydromorphone 1 Mg PHA 08/17/24 Complete Inj (Dilaudid 1mg Inj 05:00 Loperamide Hcl 2 Mg PHA 08/17/24 Complete Cap (Imodium) 05:30 Current Medications Medications (Trade) Dose Ordered Sig/Madhavi Route PRN Reason Start Time Stop Time Status Last Admin Dose Admin Hydromorphone HCl (DiLAUDid 1MG INJ) 1 mg ONCE ONCE IVP 08/17/24 04:00 08/17/24 04:01 DC 08/17/24 03:57 Hydromorphone HCl (DiLAUDid 1MG INJ) 1 mg ONCE ONCE IVP 08/17/24 05:00 08/17/24 05:01 DC 08/17/24 05:01 Hydromorphone HCl (DiLAUDid 1MG INJ) 1 mg STK-MED ONCE .ROUTE 08/17/24 03:36 08/17/24 03:37 DC Insulin Human Regular (humuLIN R 100 UNIT/ML 3ML) 15 unit ONCE ONCE SQ 08/17/24 03:00 08/17/24 03:01 DC 08/17/24 03:05 Loperamide HCl (Imodium) 2 mg ONCE ONCE PO 08/17/24 05:30 08/17/24 05:31 DC 08/17/24 05:29 Morphine Sulfate (morPHINE 2MG SYG) 2 mg ONCE ONCE IVP 08/17/24 02:00 08/17/24 02:01 DC 08/17/24 03:00 Ondansetron HCl (zoFRAN 4MG INJ) 4 mg ONCE ONCE IVP 08/17/24 02:00 08/17/24 02:01 DC 08/17/24 02:59 Sodium Chloride 250 ml @ 0 mls/hr ONCE ONCE IV 08/17/24 02:00 08/17/24 02:25 DC Sodium Chloride 500 ml @ 0 mls/hr Q0M ONCE IV 08/17/24 03:00 08/17/24 03:01 DC 08/17/24 03:03 Vital Signs Date Time Temp Pulse Resp B/P (MAP) Pulse Ox O2 Delivery O2 Flow Rate FiO2 08/17/24 01:16 98.6 104 179/89 100 Room Air We will perform diagnostic labs, advanced imaging and administer medications according to the patient's complaint. Once the results are available, will review and personally interpreted the labs to rule out any acute life- threatening emergency the trach require immediate intervention and treatment. I will then re-evaluate the patient after treatment and diagnostic exams have return to determine whether the patient requires any further testing, can safely be discharged home or need further admission to hospital for additional treatment and evaluation. Reviewed labs there is no leukocytosis BNP 7 is at baseline hemoglobin is 10.4. She responded to the pain medications and also Imodium We will discharge her home on same medications for now. Patient does not have a primary care physician at this time and encouraged her to make an appointment [facility] to get established and have outpatient pain management optimized. Medical Decision Making MDM MDM: Differential diagnosis: Gastroenteritis, food poisoning, medications. Rationale: Tests considered and ordered secondary to shared decision making include: Previous outside records reviewed: Old ER visits. Risk of complication and/or morbidity or mortality of patient management: None Medications-Per medication reconciliation Need for hospitalization: Patient does not meet criteria for hospitalization. Need for emergency major/minor surgery: No There are no social concerns with this patient. Prescription drug management Prescriptions will include symptomatic care Patient's prior external medical records from other ER visits were reviewed by me as indicated. Prior testing and results from previous visits were reviewed. Prior tests were taken into account with medical decision making and resource utilization, independent historian/historians were used to obtain complete medical history. I independently interpreted the test that were performed, results were reviewed by me and considered findings on radiology if ordered. Medical management and examination interpretation discussions were had by me with other qualified healthcare professionals as indicated for the patient's care. Problem List Problem List: (1) End-stage renal disease on hemodialysis (2) Gastroenteritis (3) Nausea and vomiting (4) Hypertension (5) Diabetes mellitus with hyperglycemia (6) Anemia of chronic kidney failure (7) Gastroparesis due to DM (8) Chronic upper back pain DX & DISP Disposition: Discharge Departure Impression: Primary Impression: Chronic upper back pain Additional Impressions: Uncontrolled diabetes mellitus, End-stage renal disease on hemodialysis, Anemia of chronic kidney failure Condition: Stable Scripts Acetaminophen with Codeine (Acetaminophen-Cod #3 Tablet) 300 Mg-30 Mg Tablet 1 TAB PO Q6HPRN PRN for pain for 7 Days, #28 TAB 0 Refills Prov: FINN FLOWERS MD 08/17/24 Ondansetron (Ondansetron Odt) 4 Mg Tab.rapdis 4 MG PO q8 PRN for nausea, #16 TAB 0 Refills Prov: FINN FLOWERS MD 08/17/24 Loperamide HCl (Imodium 2 mg Cap) 2 Mg Capsule 2 CAP PO Q6H for loose stool for 5 Days, #40 CAP 0 Refills Prov: FINN FLOWERS MD 08/17/24 Additional Instructions: Patient and the caregiver have been informed of all the diagnostic tests and the imaging conducted during the today's visit to the emergency room and has verbalized understanding of the results I have personally reviewed and interpreted all diagnostic exams performed here in the ER today as well as the vital signs documented by the nursing staff. The patient is now being discharged to home and should follow up with the primary care physician or the specialist as directed by the ER staff. Follow-up with primary care provider in 1 to 2 days. Take medications as directed here in the emergency room. Okay to continue home medications unless otherwise discussed during your visit in the emergency room today. Return to your nearest emergency room if symptoms worsen or if there is no improvement. Call 911 if you need immediate assistance. Take Tylenol or Motrin [id number] as needed and if no contraindications are present. Increase oral hydration. A wound culture or urine culture was ordered here in the emergency room department please follow-up with primary care provider and advise them to get repeat ports from our facility. If you had any Zaki wrap/splints that were applied here, please do not remove them until you see your primary care or specialty. Extensive counseling on adverse effects of the medications in the setting of renal failure and complications if she abuses or overuse as the medication were discussed extensively with the patient .patient also was educated on prolonged QT interval as a complication of ondansetron Referrals: GUIDO MEDINA MD (PCP) FINN FLOWERS MD Aug 17, 2024 01:54
[2024-08-17] MEDS ORDERED: 0.9% NACL 250ML 250 ML IV ONE (02:00)
[2024-08-17 02:18] LABS: BASOPHILS # (AUTO) 0.05 K/uL (0.00-0.20); BASOPHILS % (AUTO) 0.6 % (0.0-5.0); EOSINOPHILS # (AUTO) 0.09 K/uL (0.00-0.70); EOSINOPHILS % (AUTO) 1.1 % (0.0-8.0); HEMATOCRIT 33.6 % (36-48); IMMATURE GRANULOCYTE ABSOLUTE 0.19 K/uL (0-1); LYMPHOCYTES # (AUTO) 1.5 K/uL (1.0-4.8); LYMPHOCYTES % (AUTO) 17.9 % (21.0-51.0); MEAN CORPUSCULAR HEMOGLOBIN 28.3 pg (27.0-33.0); MEAN CORPUSCULAR VOLUME 91.3 fL (79-99); MONOCYTES # (AUTO) 0.8 K/uL (0.1-1.0); MONOCYTES % (AUTO) 9.8 % (3.0-13.0); NEUTROPHILS # (AUTO) 5.7 K/uL (1.8-7.7); NEUTROPHILS % (AUTO) 68.3 % (40.0-77.0); PLATELET COUNT (AUTO) 159 K/uL (130-400); RED BLOOD CELL COUNT(AUTO) 3.68 MIL/uL (4.00-5.50); RED CELL DISTRIBUTION WIDTH 14.9 % (11.0-15.5); WHITE BLOOD COUNT (AUTO) 8.3 K/uL (4.8-10.8)
[2024-08-17 02:28] LABS: POTASSIUM 4.6 mmol/L (3.5-5.1)
[2024-08-17] MEDS: ondanSETRON 4MG INJ IVP ONE (02:59)
[2024-08-17] MEDS: morPHINE 2 MG SYG IVP ONE (03:00)
[2024-08-17] MEDS: 0.9% NACL 500ML IV.SOLN 500 ML IV ONE (03:03)
[2024-08-17] MEDS: INSULIN humuLIN R 100 UNIT/ML 3ML SQ ONE (03:05)
[2024-08-17] MEDS: hydroMORPHone 1 MG INJ IVP ONE ×2 (03:57→05:01)
[2024-08-17] MEDS: hydroMORPHone 1 MG INJ ONE (03:57)
[2024-08-17] MEDS: LOPERAMIDE HCL 2 MG CAP PO ONE (05:29)
[2024-08-17] MEDS ORDERED: LOPE2CAP PO (05:49)
[2024-08-17] MEDS ORDERED: ACET-2079 PO (05:49)
[2024-08-17] MEDS ORDERED: ONDA-243 PO (05:49)
--- NOTE | 2024-08-17 06:49 | NUR ---
PATIENTS SPOUSE IS HERE FOR PATIENT
[2024-08-17 07:05] VITALS: BP 146/76; PULSE 85; RESP 18; TEMP 98.4; O2SAT 98
== END 2024-08-17 07:25 | disposition home or self-care (01) ==
LOC: EDH 01:13
DX: I13.2 Hypertensive heart and chronic kidney disease with heart failure and with stage 5 chronic kidney disease, or end stage renal disease (principal); E11.22 Type 2 diabetes mellitus with diabetic chronic kidney disease; N18.6 End stage renal disease; G89.29 Other chronic pain; M54.6 Pain in thoracic spine; E11.65 Type 2 diabetes mellitus with hyperglycemia; D63.1 Anemia in chronic kidney disease; E78.00 Pure hypercholesterolemia, unspecified; I50.9 Heart failure, unspecified; Z79.82 Long term (current) use of aspirin; Z79.899 Other long term (current) drug therapy; Z99.2 Dependence on renal dialysis; Z91.040 Latex allergy status
CPT/HCPCS: 99284; 96374; 96375; 80048; 84703; 83690; 85025; 82948; 36415; 96376; 96372; J1815; J7040; J1171 ×2; J2270; J2405

== ENCOUNTER 2024-08-18 12:13 | Emergency (ER) | payer OTHER, MEDICARE ==
[~2024-08-18] VITALS: Ht 162.6 cm; Wt 63.5 kg
[~2024-08-18 12:13] MED LIST changes: +ACET-2079 PO; +LOPE2CAP PO; +ONDA-243 PO
--- NOTE | 2024-08-18 12:45 | ERN ---
General Chief Complaint: Abdominal Pain Stated Complaint: BODY PAIN Time Seen by : 12:23 Time Seen by Midlevel: 12:23 Source: patient History of Present Illness Initial Comments Patient is a 39-year-old female with known history of multiple medical problems and frequent ER visits presenting to the emergency department with diffuse abdominal pain. She was seen in our emergency department yesterday for the same complaint. She had blood work drawn which is all stable. She was seen at [facility] ER yesterday for the same complaint. She was evaluated and received antibiotics and was released. She does have a history of end-stage renal disease on hemodialysis on a Thursday schedule. She is followed by chief legal officer Dr. Cooper. She states her last dialysis was performed yesterday with no complications. Today she specifically denies any chest pain, shortness for breath, or any other symptoms at this time. She states the only thing that helps her with pain is Dilaudid and that is where she was requesting today. Chronic medical problems include end-stage renal disease on hemodialysis Thursday, diabetes mellitus, hypertension, congestive heart failure, hypercholesterolemia, chronic anemia and history of left foot 2nd and 3rd toe amputations. Allergies: Allergies: Coded Allergies: Latex, Natural Rubber (Unverified Allergy, Unknown, 02/04/23) Home Meds Active Scripts Acetaminophen with Codeine (Acetaminophen-Cod #3 Tablet) 300 Mg-30 Mg Tablet, 1 TAB PO Q6HPRN PRN for pain for 7 Days, #28 TAB 0 Refills Prov:FINN FLOWERS MD 08/17/24 Ondansetron (Ondansetron Odt) 4 Mg Tab.rapdis, 4 MG PO q8 PRN for nausea, #16 TAB 0 Refills Prov:FINN FLOWERS MD 08/17/24 Loperamide HCl (Imodium 2 mg Cap) 2 Mg Capsule, 2 CAP PO Q6H for loose stool for 5 Days, #40 CAP 0 Refills Prov:FINN FLOWERS MD 08/17/24 Acetaminophen (Acetaminophen) 325 Mg Tablet, 1 TAB PO Q4HPRN PRN for pain or fever for 24 Days, #100 TAB 0 Refills Prov:FRANKIE MORENO MD 08/05/24 Gabapentin (Gabapentin) 100 Mg Capsule, 1 CAP PO TID for 30 Days, #30 CAP 0 Refills Prov:FRANKIE MORENO MD 08/05/24 Sertraline HCl (Zoloft) 50 Mg Tablet, 50 MG PO DAILY, #30 TAB 0 Refills Prov:NANCY CHENEY MD 07/26/24 Lisinopril (Lisinopril) 40 Mg Tablet, 40 MG PO DAILY, #30 TAB 0 Refills Prov:NANCY CHENEY MD 07/26/24 Carvedilol (Coreg) 12.5 Mg Tablet, 12.5 MG PO BID, #60 TAB 0 Refills Prov:NANCY CHENEY MD 07/26/24 Cefdinir (Cefdinir) 300 Mg Capsule, 1 CAP PO BID for 7 Days, #14 CAP 0 Refills Prov:KAYODE DELEON NP 07/12/24 Aspirin (ASPIRIN 81 MG ECTAB) 81 Mg Ectab, 81 MG PO DAILY, #30 TAB.EC 0 Refills Prov:NANCY CHENEY MD 06/29/24 Hydralazine HCl (Apresoline) 25 Mg Tab, 25 MG PO TID, #90 TAB 0 Refills Prov:NANCY CHENEY MD 05/04/24 Metoprolol Tartrate (Lopressor 50Mg Tab) 50 Mg Tab, 50 MG PO BID, #60 TAB Prov:HORTENCIA CALIXTO BACON DE RINDER 04/11/24 Reported Medications [Magnesium Tab Qd] 250 MG No Conflict Check, DAILY 06/06/24 [Iron Tab Qd] 45 MG No Conflict Check, DAILY 06/06/24 Cyclobenzaprine HCl (Cyclobenzaprine HCl) 10 Mg Tablet, 1 TAB PO TID PRN for MUSCLE SPASMS for 10 Days, #30 TAB 0 Refills 06/06/24 Insulin Detemir (Levemir) 100 Unit/Ml Vial, 15 UNIT SQ HS, VIAL 04/30/24 Metoclopramide HCl (Metoclopramide HCl) 10 Mg Tablet, 10 MG PO QIDP PRN for nausea/vomiting 04/10/24 Sodium Bicarbonate (Sodium Bicarbonate) 650 Mg Tablet, 1 TAB PO TID 04/10/24 Atorvastatin Calcium (Atorvastatin Calcium) 40 Mg Tablet, 1 TAB PO HS 04/10/24 Past Medical History Past Medical History: Anemia, CHF, Diabetes-Type II, High Cholesterol, Hypertension, Renal Failure, Other Medical History Other: GLAUCOMA,NEUROPATHY Past Surgical History: Other Surgical History Other: LEFT 2ND AND 3RD TOE AMPUTATION Family History Family History: Negative Social History Social History: Negative Female( History) History: Not Applicable ROS Dictation CONSTITUTIONAL: Negative except for HPI HEAD/FACE: Negative except for HPI EENT: Negative except for HPI RESPIRATORY: Negative except for HPI GASTROINTESTINAL/ABDOMINAL: Negative except for HPI GENITOURINARY: Negative except for HPI MUSCULOSKELETAL: Negative except for HPI INTEGUMENTARY: Negative except for HPI NEUROLOGICAL/PSYCH: Negative except for HPI HEMATOLOGIC/LYMPHATIC: Negative except for HPI All Systems Negative, Except as noted above. 13 point review of systems assessed and all negative except for above. Physical Exam Physical Exam Dictation PHYSICAL EXAM: GENERAL: alert,, awake oriented x 3 HEENT: EOMI, Sclera non icteric, moist mucosa NECK: Supple, no JVD, trachea midline LUNGS: Clear breath sounds bilaterally. No wheezes HEART: Regular rate and rhythm. Normal S1 and S2, without murmurs ABD: Abdomen soft, nontender. Bowel sounds present EXT: No clubbing or cyanosis, NEURO: Alert and oriented to person, follows commands MDM MDM: 39-year-old female with a past medical history of end-stage renal disease presenting to the emergency department with diffuse abdominal pain. Patient has already been seen by to emergency department over the last 24 hours and off her blood work has been stable. She is requesting lot at this time. She is refusing any sort of blood work and only wants her pain controlled. Patient will be discharged after Dilaudid IM. She will need to follow up with your primary care doctor for outpatient evaluation. Differential diagnosis: Drug-seeking behavior, malingering, end-stage renal disease on hemodialysis There are no social concerns with this patient. Prescription drug management Prescriptions will include: None Medical management and examination interpretation discussions were had by me with other qualified healthcare professionals as indicated for the patient's care. ED Course Orders Procedure Category Date Status Time Hydromorphone 1 Mg PHA 08/18/24 Complete Inj (Dilaudid 1mg Inj 13:00 Current Medications Medications (Trade) Dose Ordered Sig/Madhavi Route PRN Reason Start Time Stop Time Status Last Admin Dose Admin Hydromorphone HCl (DiLAUDid 1MG INJ) 1 mg ONCE ONCE IM 08/18/24 13:00 08/18/24 13:01 DC 08/18/24 13:38 Vital Signs Date Time Temp Pulse Resp B/P (MAP) Pulse Ox O2 Delivery O2 Flow Rate FiO2 08/18/24 13:48 98.1 90 20 169/95 100 Room Air* 0 21 08/18/24 12:27 98.1 104 20 180/101 99 Room Air DX & DISP Disposition: Discharge Departure Impression: Primary Impression: Diffuse abdominal pain Condition: Stable Additional Instructions: You were seen in our emergency department yesterday for the same complaints. Your blood work was stable. You were given pain medication in the emergency department. You will need to follow up with your primary care doctor in 2-3 days for repeat evaluation. Referrals: GUIDO MEDINA MD (PCP) Time of Disposition: 13:03 I have reviewed the case, and I agree with, Diagnosis and Plan I performed the substantive portion of the visit. I have reviewed and personally made and approve the management plan that is documented in the note by myself or the RADHIKA. I acknowledge for responsibility for the patient's management plan. OC LIN Aug 18, 2024 12:45 FERNANDEZ BLOOD DO Aug 18, 2024 17:48
[2024-08-18] MEDS: hydroMORPHone 1 MG INJ IM ONE (13:38)
[2024-08-18 13:48] VITALS: BP 169/95; PULSE 90; RESP 20; TEMP 98.1; O2SAT 100
== END 2024-08-18 14:03 | disposition home or self-care (01) ==
LOC: EDH 12:13
DX: R10.84 Generalized abdominal pain (principal); I13.2 Hypertensive heart and chronic kidney disease with heart failure and with stage 5 chronic kidney disease, or end stage renal disease; E11.22 Type 2 diabetes mellitus with diabetic chronic kidney disease; I50.9 Heart failure, unspecified; N18.6 End stage renal disease; D64.9 Anemia, unspecified; E78.00 Pure hypercholesterolemia, unspecified; Z79.82 Long term (current) use of aspirin; Z79.899 Other long term (current) drug therapy; Z91.040 Latex allergy status; Z99.2 Dependence on renal dialysis
CPT/HCPCS: 99283; 96372; J1171

== ENCOUNTER 2024-08-19 19:47 | Emergency (ER) | payer OTHER, MEDICARE ==
[~2024-08-19] VITALS: Ht 162.6 cm; Wt 63.5 kg
--- NOTE | 2024-08-19 20:02 | EKG ---
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
--- NOTE | 2024-08-19 20:30 | HMCIMG ---
Exam Type: CHEST 1VW Clinical Information: SOB Comparison: None Findings: Pulmonary pattern is as before. No worrisome interval changes have taken place. Impression: Stable exam.
[2024-08-19 20:31] LABS: BASOPHILS # (AUTO) 0.07 K/uL (0.00-0.20); BASOPHILS % (AUTO) 0.6 % (0.0-5.0); EOSINOPHILS # (AUTO) 0.17 K/uL (0.00-0.70); EOSINOPHILS % (AUTO) 1.4 % (0.0-8.0); HEMATOCRIT 30.4 % (36-48); IMMATURE GRANULOCYTE ABSOLUTE 0.52 K/uL (0-1); LYMPHOCYTES # (AUTO) 1.7 K/uL (1.0-4.8); MEAN CORPUSCULAR HEMOGLOBIN 28.6 pg (27.0-33.0); MEAN CORPUSCULAR HGB CONC 32.6 g/dL (32.0-36.0); MEAN CORPUSCULAR VOLUME 87.9 fL (79-99); MONOCYTES % (AUTO) 7.9 % (3.0-13.0); NEUTROPHILS # (AUTO) 8.6 K/uL (1.8-7.7); NEUTROPHILS % (AUTO) 71.8 % (40.0-77.0); PLATELET COUNT (AUTO) 204 K/uL (130-400); RED BLOOD CELL COUNT(AUTO) 3.46 MIL/uL (4.00-5.50); RED CELL DISTRIBUTION WIDTH 14.5 % (11.0-15.5)
[2024-08-19 20:57] LABS: CREATININE 1.6 mg/dL (0.5-1.0)
[2024-08-19 21:28] LABS: B-TYPE NATRIURETIC PEPTIDE 587 pg/mL (0-100)
[2024-08-19] MEDS: ondanSETRON 4MG TABLET PO ONE (22:39)
[2024-08-19] MEDS: morPHINE 2 MG SYG IM ONE (22:40)
--- NOTE | 2024-08-19 22:40 | ERN ---
General Chief Complaint: Shortness of Breath Stated Complaint: WEAKNESS,HEADACHE,SOB Time Seen by MD: 20:11 History of Present Illness Initial Comments Mrs Cooper is a 39-year-old female significant past medical history of end-stage renal disease, hypertension, volume overload who presents today with a chief complaint of headache. Patient reports that she was recently a dialysis who has been feeling weak. Patient is well known to the emergency department. Allergies: Coded Allergies: Latex, Natural Rubber (Unverified Allergy, Unknown, 02/04/23) Home Meds Active Scripts Acetaminophen with Codeine (Acetaminophen-Cod #3 Tablet) 300 Mg-30 Mg Tablet, 1 TAB PO Q6HPRN PRN for pain for 7 Days, #28 TAB 0 Refills Prov:FINN FLOWERS MD 08/17/24 Ondansetron (Ondansetron Odt) 4 Mg Tab.rapdis, 4 MG PO q8 PRN for nausea, #16 TAB 0 Refills Prov:FINN FLOWERS MD 08/17/24 Loperamide HCl (Imodium 2 mg Cap) 2 Mg Capsule, 2 CAP PO Q6H for loose stool for 5 Days, #40 CAP 0 Refills Prov:FINN FLOWERS MD 08/17/24 Acetaminophen (Acetaminophen) 325 Mg Tablet, 1 TAB PO Q4HPRN PRN for pain or fever for 24 Days, #100 TAB 0 Refills Prov:FRANKIE MORENO MD 08/05/24 Gabapentin (Gabapentin) 100 Mg Capsule, 1 CAP PO TID for 30 Days, #30 CAP 0 Refills Prov:FRANKIE MORENO MD 08/05/24 Sertraline HCl (Zoloft) 50 Mg Tablet, 50 MG PO DAILY, #30 TAB 0 Refills Prov:NANCY CHENEY MD 07/26/24 Lisinopril (Lisinopril) 40 Mg Tablet, 40 MG PO DAILY, #30 TAB 0 Refills Prov:NANCY CHENEY MD 07/26/24 Carvedilol (Coreg) 12.5 Mg Tablet, 12.5 MG PO BID, #60 TAB 0 Refills Prov:NANCY CHENEY MD 07/26/24 Cefdinir (Cefdinir) 300 Mg Capsule, 1 CAP PO BID for 7 Days, #14 CAP 0 Refills Prov:KAYODE DELEON NP 07/12/24 Aspirin (ASPIRIN 81 MG ECTAB) 81 Mg Ectab, 81 MG PO DAILY, #30 TAB.EC 0 Refills Prov:NANCY CHENEY MD 06/29/24 Hydralazine HCl (Apresoline) 25 Mg Tab, 25 MG PO TID, #90 TAB 0 Refills Prov:NANCY CHENEY MD 05/04/24 Metoprolol Tartrate (Lopressor 50Mg Tab) 50 Mg Tab, 50 MG PO BID, #60 TAB Prov:HORTENCIA CALIXTO DONOR RELATIONS MANAGER 04/11/24 Reported Medications [Magnesium Tab Qd] 250 MG No Conflict Check, DAILY 06/06/24 [Iron Tab Qd] 45 MG No Conflict Check, DAILY 06/06/24 Cyclobenzaprine HCl (Cyclobenzaprine HCl) 10 Mg Tablet, 1 TAB PO TID PRN for MUSCLE SPASMS for 10 Days, #30 TAB 0 Refills 06/06/24 Insulin Detemir (Levemir) 100 Unit/Ml Vial, 15 UNIT SQ HS, VIAL 04/30/24 Metoclopramide HCl (Metoclopramide HCl) 10 Mg Tablet, 10 MG PO QIDP PRN for nausea/vomiting 04/10/24 Sodium Bicarbonate (Sodium Bicarbonate) 650 Mg Tablet, 1 TAB PO TID 04/10/24 Atorvastatin Calcium (Atorvastatin Calcium) 40 Mg Tablet, 1 TAB PO HS 04/10/24 Past Medical History Past Medical History: Anemia, CHF, Diabetes-Type II, High Cholesterol, Hypertension, Renal Disese, Renal Failure, Other Medical History Other: GLAUCOMA,NEUROPATHY Past Surgical History: Other Surgical History Other: LEFT 2ND AND 3RD TOE AMPUTATION Family History Family History: Negative Social History Social History: Negative Female( History) History: Not Applicable ROS Dictation Constitutional: Positive for weakness Eyes: Negative for injury, pain,redness, and discharge ENT: Negative for injury,pain or swelling Cardiovascular: Negative for chest pain, palpitations, and edema Respiratory: Positive shortness of breath Abdomen/GI: Negative for abdominal pain, nausea, vomiting, diarrhea, and constipation Back: Negative for injury and pain : Negative for injury, bleeding and discharge MS/Extremity: Negative for injury and deformity Skin: Negative for rash, and discoloration Neuro: Positive for headache and weakness Psych: Negative for suicide ideation, homicidal ideation, and hallucinations Physical Exam Physical Exam Dictation General: awake, alert, NAD Head/Face: Normocephalic, atraumatic Eyes: PERRL, EOMI, vision at baseline ENT: oral cavity clear, Neck: Trachea midline, supple Cardiovascular: RRR, normal S1/S2, No MRGs, no JVD Respiratory: CTAB, no respiratory distres Abdomen: Soft, non-tender, non-distended, Skin: Warm, dry, normal turgor, no rash MS/Extremity: Pulses equal, no cyanosis Neuro: COAx4, GCS 15, strength 5/5 Results Laboratory and Microbiology Lab and Micro Result Laboratory Tests Test 08/19/24 20:22 White Blood Count 12.0 K/uL (4.8-10.8) H Red Blood Count 3.46 MIL/uL (4.00-5.50) L Hemoglobin 9.9 g/dL (12.0-16.0) L Hematocrit 30.4 % (36-48) L Mean Corpuscular Volume 87.9 fL (79-99) Mean Corpuscular Hemoglobin 28.6 pg (27.0-33.0) Mean Corpuscular Hemoglobin Concent 32.6 g/dL (32.0-36.0) Red Cell Distribution Width 14.5 % (11.0-15.5) Platelet Count 204 K/uL (130-400) # Mean Platelet Volume 10.9 fL (7.5-10.5) H Immature Granulocyte % (Auto) 4.3 % (0-1) H Neutrophils (%) (Auto) 71.8 % (40.0-77.0) Lymphocytes (%) (Auto) 14.0 % (21.0-51.0) L Monocytes (%) (Auto) 7.9 % (3.0-13.0) Eosinophils (%) (Auto) 1.4 % (0.0-8.0) Basophils (%) (Auto) 0.6 % (0.0-5.0) Neutrophils # (Auto) 8.6 K/uL (1.8-7.7) H Lymphocytes # (Auto) 1.7 K/uL (1.0-4.8) Monocytes # (Auto) 1.0 K/uL (0.1-1.0) Eosinophils # (Auto) 0.17 K/uL (0.00-0.70) Basophils # (Auto) 0.07 K/uL (0.00-0.20) Absolute Immature Granulocyte (auto 0.52 K/uL (0-1) Nucleated Red Blood Cells 0.0 % (0.0-0.19) Sodium Level 134 mmol/L (136-145) L Potassium Level 3.0 mmol/L (3.5-5.1) *L Chloride Level 100 mmol/L (101-111) L Carbon Dioxide Level 34 mmol/L (21-32) H Blood Urea Nitrogen 6 mg/dL (7-18) L Creatinine 1.6 mg/dL (0.5-1.0) H Glomerular Filtration Rate Calc 42 mL/min (>90) Random Glucose 180 mg/dL (70-105) H Total Calcium 8.1 mg/dL (8.5-10.1) L Troponin I High Sensitivity 16 ng/L (4-50) B-Type Natriuretic Peptide 587 pg/mL (0-100) H MDM Patient appears to be stable from a lab and radiographic standpoint. Patient be given some morphine in anti nausea medicine patient will be discharged for follow up MDM: Differential diagnosis: Weakness headache Rationale: Tests considered and ordered secondary to shared decision making include: Previous outside records reviewed: Old ER visits. Risk of complication and/or morbidity or mortality of patient management: None Medications-Per medication reconciliation Need for hospitalization: Patient does not meet criteria for hospitalization. Need for emergency major/minor surgery: No There are no social concerns with this patient. Prescription drug management Prescriptions will include symptomatic care Patient's prior external medical records from other ER visits were reviewed by me as indicated. Prior testing and results from previous visits were reviewed. Prior tests were taken into account with medical decision making and resource utilization, independent historian/historians were used to obtain complete medical history. I independently interpreted the test that were performed, results were reviewed by me and considered findings on radiology if ordered. Medical management and examination interpretation discussions were had by me with other qualified healthcare professionals as indicated for the patient's care. ED Course Orders Procedure Category Date Status Time 12 Lead Ekg Tracing- EKG 08/19/24 Complete Technical 19:56 Chest 1vw RAD 08/19/24 Resulted 19:56 Cbc With Differential LAB 08/19/24 Complete 19:56 Basic Metabolic Panel LAB 08/19/24 Complete 19:56 B-Type Natriuretic LAB 08/19/24 Complete Peptide 19:56 Troponin I High LAB 08/19/24 Complete Sensitivity 19:56 Chest 1vw RAD 08/19/24 Logged 22:16 Morphine 2mg Syg PHA 08/19/24 Transmitted (Morphine 2mg Syg) 22:30 Ondansetron 4mg PHA 08/19/24 Transmitted Tablet (Zofran 4mg 22:30 Vital Signs Date Time Temp Pulse Resp B/P (MAP) Pulse Ox O2 Delivery O2 Flow Rate FiO2 08/19/24 22:19 97.9 66 20 132/74 100 Room Air* 0 21 08/19/24 19:47 96.6 88 16 147/90 98 Room Air DX & DISP Disposition: Discharge Departure Impression: Primary Impression: Wellness examination Condition: Stable Additional Instructions: Please follow up with your primary care physician in the next 1-7 days Referrals: GUIDO MEDINA MD (PCP) ELBA NIELSEN MD Aug 19, 2024 22:40
[2024-08-19 23:21] VITALS: BP 123/70; PULSE 74; RESP 20; TEMP 97.8; O2SAT 100
[2024-08-24] MEDS ORDERED: HYDR25TA67 PO (10:47)
== END 2024-08-19 23:23 | disposition home or self-care (01) ==
LOC: EDH 19:47
DX: R51.9 Headache, unspecified (principal); I13.2 Hypertensive heart and chronic kidney disease with heart failure and with stage 5 chronic kidney disease, or end stage renal disease; E11.22 Type 2 diabetes mellitus with diabetic chronic kidney disease; E78.00 Pure hypercholesterolemia, unspecified; I50.9 Heart failure, unspecified; N18.6 End stage renal disease; I48.92 Unspecified atrial flutter; Z79.82 Long term (current) use of aspirin; Z79.899 Other long term (current) drug therapy; Z91.040 Latex allergy status; Z99.2 Dependence on renal dialysis
CPT/HCPCS: 99285; 71045; 84484; 80048; 83880; 85025; 36415; 96372; 93005; Q0162; J2270

== ENCOUNTER 2024-08-22 14:47 | Emergency (ER) | payer OTHER, MEDICARE ==
[~2024-08-22] VITALS: Ht 162.6 cm; Wt 63.5 kg
--- NOTE | 2024-08-22 15:27 | EKG ---
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
--- NOTE | 2024-08-22 15:39 | ERN ---
ED Note History of Present Illness Stated Complaint: SOB Chief Complaint: Mechanical Fall Time Seen by MD: 15:31 Dictation: PATIENT IS A 39-YEAR-OLD FEMALE STATES SHE WAS HAVING A SHOWER THIS MORNING SHE HAD A SLIP FALL LANDED ON HER RIGHT ANTERIOR CHEST AND HIP AREA. NO SHORTNESS A BREATH NO SHORTENING OR ROTATION OF HER RIGHT LEG. SHE HAS TAKEN NOTHING PRIOR TO ARRIVAL FOR PAIN. NO BLOOD THINNERS NO TRAUMA ALERT CRITERIA, DID NOT HIT HER HEAD Allergies: Coded Allergies: Latex, Natural Rubber (Unverified Allergy, Unknown, 02/04/23) Home Meds Active Scripts Acetaminophen with Codeine (Acetaminophen-Cod #3 Tablet) 300 Mg-30 Mg Tablet, 1 TAB PO Q6HPRN PRN for pain for 7 Days, #28 TAB 0 Refills Prov:FINN FLOWERS MD 08/17/24 Ondansetron (Ondansetron Odt) 4 Mg Tab.rapdis, 4 MG PO q8 PRN for nausea, #16 TAB 0 Refills Prov:FINN FLOWERS MD 08/17/24 Loperamide HCl (Imodium 2 mg Cap) 2 Mg Capsule, 2 CAP PO Q6H for loose stool for 5 Days, #40 CAP 0 Refills Prov:FINN FLOWERS MD 08/17/24 Acetaminophen (Acetaminophen) 325 Mg Tablet, 1 TAB PO Q4HPRN PRN for pain or fever for 24 Days, #100 TAB 0 Refills Prov:FRANKIE MORENO MD 08/05/24 Gabapentin (Gabapentin) 100 Mg Capsule, 1 CAP PO TID for 30 Days, #30 CAP 0 Refills Prov:FRANKIE MORENO MD 08/05/24 Sertraline HCl (Zoloft) 50 Mg Tablet, 50 MG PO DAILY, #30 TAB 0 Refills Prov:NANCY CHENEY MD 07/26/24 Lisinopril (Lisinopril) 40 Mg Tablet, 40 MG PO DAILY, #30 TAB 0 Refills Prov:NANCY CHENEY MD 07/26/24 Carvedilol (Coreg) 12.5 Mg Tablet, 12.5 MG PO BID, #60 TAB 0 Refills Prov:NANCY CHENEY MD 07/26/24 Cefdinir (Cefdinir) 300 Mg Capsule, 1 CAP PO BID for 7 Days, #14 CAP 0 Refills Prov:KAYODE DELEON NP 07/12/24 Aspirin (ASPIRIN 81 MG ECTAB) 81 Mg Ectab, 81 MG PO DAILY, #30 TAB.EC 0 Refills Prov:NANCY CHENEY MD 06/29/24 Hydralazine HCl (Apresoline) 25 Mg Tab, 25 MG PO TID, #90 TAB 0 Refills Prov:NANCY CHENEY MD 05/04/24 Metoprolol Tartrate (Lopressor 50Mg Tab) 50 Mg Tab, 50 MG PO BID, #60 TAB Prov:HORTENCIA CALIXTO [employer]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/11/24 Reported Medications [Magnesium Tab Qd] 250 MG No Conflict Check, DAILY 06/06/24 [Iron Tab Qd] 45 MG No Conflict Check, DAILY 06/06/24 Cyclobenzaprine HCl (Cyclobenzaprine HCl) 10 Mg Tablet, 1 TAB PO TID PRN for MUSCLE SPASMS for 10 Days, #30 TAB 0 Refills 06/06/24 Insulin Detemir (Levemir) 100 Unit/Ml Vial, 15 UNIT SQ HS, VIAL 04/30/24 Metoclopramide HCl (Metoclopramide HCl) 10 Mg Tablet, 10 MG PO QIDP PRN for nausea/vomiting 04/10/24 Sodium Bicarbonate (Sodium Bicarbonate) 650 Mg Tablet, 1 TAB PO TID 04/10/24 Atorvastatin Calcium (Atorvastatin Calcium) 40 Mg Tablet, 1 TAB PO HS 04/10/24 Past Medical History Past Medical History: Anemia, CHF, Diabetes-Type II, Glaucoma, High Felicia sterol, Hypertension, Renal Disese, Renal Failure, Other Additional Past Medical Hx: GLAUCOMA,NEUROPATHY Surgical History: Other Surgical History Other: LEFT 2ND AND 3RD TOE AMPUTATION Family History: Negative Social History: Negative History: Not Applicable RN Note Reviewed/Agreed w/PFSH: Yes Review of System Dictation CONSTITUTIONAL: NEGATIVE EXCEPT FOR HPI HEAD/FACE: NEGATIVE EXCEPT FOR HPI EENT: NEGATIVE EXCEPT FOR HPI RESPIRATORY: NEGATIVE EXCEPT FOR HPI RIGHT LATERAL CHEST PAIN ANTERIOR GASTROINTESTINAL/ABDOMINAL: NEGATIVE EXCEPT FOR HPI GENITOURINARY: NEGATIVE EXCEPT FOR HPI MUSCULOSKELETAL: NEGATIVE EXCEPT FOR HPI RIGHT HIP PAIN INTEGUMENTARY: NEGATIVE EXCEPT FOR HPI NEUROLOGICAL/PSYCH: NEGATIVE EXCEPT FOR HPI HEMATOLOGIC/LYMPHATIC: NEGATIVE EXCEPT FOR HPI ALL SYSTEMS NEGATIVE, EXCEPT NOTED ABOVE. 13 POINT REVIEW OF SYSTEMS ASSESSED AND ALL NEGATIVE EXCEPT FOR ABOVE. Initial Vital Sign VS Vital Signs Date Time Temp Pulse Resp B/P (MAP) Pulse Ox O2 Delivery O2 Flow Rate FiO2 08/22/24 15:19 98.1 86 20 149/77 100 Room Air Physical Exam Dictation VITAL SIGNS REVIEWED GENERAL APPEARANCE: ALERT, ORIENTED X 3, MILD ACUTE DISTRESS, WELL DEVELOPED, NOURISHED. HEAD AND FACE: NON-TRAUMATIC. EYES: PERRL, PINK CONJUNCTIVAS, EYELID NO TRAUMA, ANTERIOR CHAMBER WITH ARCUS SENILIS. BLIND EARS: PINNAS INTACT AND NO SIGNS OF TRAUMA OR ERYTHEMA EAR CANALS CLEAR AND NO DISCHARGE TM NO ERYTHEMA NOSE: NO DISCHARGE, NO BLEEDING. OROPHARYNX: MOUTH NORMAL, TONGUE PINK, PHARYNX CLEAR,NO ERYTHEMA, TONSILS NO EXUDATES, NO ABSCESSES NOTED, MUCOUS MEMBRANE MOIST NECK: SUPPLE, NON-TENDER, NO THYROMEGALY, NO MASSES, NO JVD, NO BRUITS BREAST:DEFERRED CHEST: MILD RIGHT ANTEROLATERAL CHEST WALL TENDERNESS TENDERNESS, NO CREPITUS, NO PARADOXICAL MOVEMENT, NO RETRACTIONS NO ECCHYMOSIS, NO FLAIL T BILATERAL BREATH SOUNDS CLEAR LUNGS:CLEAR, WELL-VENTILATED, SYMMETRIC, NO RALES, NO WHEEZING, NO RHONCHI, NO STRIDOR, GOOD BREATH SOUNDS BILATERALLY HEART: REGULAR RATE, REGULAR RHYTHM, NO MURMUR, NO GALLOPS VASCULAR: NO PERIPHERAL EDEMA, ABDOMEN: SOFT, POSITIVE BOWEL SOUNDS, NONDISTENDED, NO GUARDING, NONTENDER, NO REBOUND, NO MASSES NO HEPATOMEGALY, NO SPLENOMEGALY, NO BURKS'S SIGN, NO HERNIAS. RECTAL: DEFERRED GENITAL: DEFERRED NEUROLOGICAL: NORMAL SPEECH, MOTOR FUNCTION INTACT, SENSORY FUNCTION INTACT MUSCULOSKELETAL: NECK NONTENDER, FULL RANGE OF MOTION, BACK NONTENDER, FULL RANGE OF MOTION, EXTREMITIES: MILD RIGHT LATERAL HIP TENDERNESS WITHOUT SHORTENING OR ROTATION OF RIGHT LEG. SKIN INTACT SKIN: COLOR PINK, DRY, NO TURGOR, NO RASH, NO LACERATIONS, NO ABRASIONS, NO CONTUSIONS. LYMPHATIC: DEFERRED Results (Laboratory/Radiology) Laboratory/Radiology CHEST X-RAY NEGATIVE NO RIB FRACTURES NO PNEUMOTHORAX RIGHT HIP X-RAY NEGATIVE NO FRACTURE NO DISLOCATION Labs Reviewed?: Yes EKG Comment: EKG NORMAL SINUS RHYTHM/HEART RATE 80/AXIS NORMAL/NO ECTOPY 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 ED Course ED Course Orders Procedure Category Date Status Time 12 Lead Ekg Tracing- EKG 08/22/24 Complete Technical 15:23 Acetaminophen 500mg PHA 08/22/24 Complete Tab (Tylenol 500mg T 16:00 Chest 1vw RAD 08/22/24 Taken 15:34 Hip Unilat 2-3vw Right RAD 08/22/24 Taken 15:34 Current Medications Medications (Trade) Dose Ordered Sig/Madhavi Route PRN Reason Start Time Stop Time Status Last Admin Dose Admin Acetaminophen (TYLenol 500MG TAB) 1,000 mg ONCE ONCE PO 08/22/24 16:00 08/22/24 16:01 DC Vital Signs Date Time Temp Pulse Resp B/P (MAP) Pulse Ox O2 Delivery O2 Flow Rate FiO2 08/22/24 15:19 98.1 86 20 149/77 100 Room Air 1607 PATIENT DISCHARGED HOME WITH SAME LEVEL FALL CHEST WALL AND RIGHT LEG CONTUSIONS TOLD TO SEE HER PRIMARY CARE DOCTOR IN 1-2 DAYS Medical Decision Making MDM MEDICAL DISCHARGE MAKING BASED ON EKG TO RULE OUT ARRHYTHMIA X-RAYS OF CHEST AND RIGHT HIP STATUS POST FALL EKG NORMAL SINUS RHYTHM X-RAYS NEGATIVE NO RIB FRACTURES NO LEG FRACTURE NO HIP FRACTURE DISCHARGED HOME WITH CONTUSIONS TOLD TO FOLLOW UP WITH HER PRIMARY CARE DOCTOR DX & DISP Disposition: Discharge Departure Impression: Primary Impression: Contusion of right chest wall Additional Impressions: Contusion of right lower leg, initial encounter, Fall Condition: Stable Additional Instructions: FOLLOW-UP WITH PRIMARY CARE PROVIDER IN 1 TO 2 DAYS. TAKE MEDICATIONS DIRECTED HERE IN THE EMERGENCY ROOM. OKAY TO CONTINUE HOME MEDICATIONS UNLESS O THERWISE DISCUSSED DURING YOUR VISIT IN THE EMERGENCY ROOM TODAY. RETURN TO YOUR NEAREST EMERGENCY ROOM IF SYMPTOMS WORSEN OR IF THERE IS NO IMPROVEMENT. CALL 911 IF YOU NEED IMMEDIATE ASSISTANCE. TAKE TYLENOL OR MOTRIN [id number] NEEDED AND IF NO CONTRAINDICATIONS ARE PRESENT. INCREASE ORAL HYDRATION. A WOUND CULTURE OR URINE CULTURE WAS ORDERED HERE IN THE EMERGENCY ROOM DEPARTMENT PLEASE FOLLOW-UP WITH PRIMARY CARE PROVIDER AND ADVISE THEM TO GET REPEAT PORTS FROM OUR FACILITY. IF YOU HAD ANY DEANA WRAP/SPLINTS THAT WERE APPLIED HERE, PLEASE DO NOT REMOVE THEM UNTIL YOU SEE YOUR PRIMARY CARE OR SPECIALTY. ACTIVITY TOLERATED. COOL COMPRESSES TO PAIN THREE TO 4 TIMES A DAY., FOLLOW UP WITH THE YOUR DOCTOR IN ONE TWO DAYS FOR MANAGEMENT. Referrals: GUIDO MEDINA MD (PCP) Time of Disposition: 16:10 I have reviewed the case, and I agree with, Diagnosis and Plan TAN DAWN NP Aug 22, 2024 15:39
--- NOTE | 2024-08-22 16:14 | HMCIMG ---
Exam Type: HIP UNILAT 2-3VW RIGHT Clinical Information: RIGHT LATERAL HIP PAIN STATUS POST SAME LEVEL FALL Comparison: None Findings: The bone examination is unremarkable. No fractures or dislocations are seen. No radiopaque foreign bodies are noted. Soft tissues are preserved. IMPRESSION: Normal examination.
--- NOTE | 2024-08-22 16:14 | HMCIMG ---
Exam Type: CHEST 1VW Clinical Information: RIGHT LATERAL CHEST PAIN STATUS POST SAME LEVEL FALL Comparison: None Findings: The lungs are clear of infiltrates. The heart is normal in size. The bony and soft tissue structures of the chest are unremarkable. Impression: Clear lungs.
[2024-08-22] MEDS: acetaMINOPHEN 500 MG TABLET PO ONE (17:15)
[2024-08-22 17:33] VITALS: BP 151/62; PULSE 87; RESP 18; TEMP 98.7; O2SAT 100
[2024-08-24] MEDS ORDERED: HYDR25TA67 PO (10:47)
== END 2024-08-22 17:33 | disposition home or self-care (01) ==
LOC: EDH 14:47
DX: S20.211A Contusion of right front wall of thorax, initial encounter (principal); S80.11XA Contusion of right lower leg, initial encounter; I11.0 Hypertensive heart disease with heart failure; I50.9 Heart failure, unspecified; E11.9 Type 2 diabetes mellitus without complications; E78.00 Pure hypercholesterolemia, unspecified; Z79.82 Long term (current) use of aspirin; Z79.899 Other long term (current) drug therapy; Z91.040 Latex allergy status; W18.39XA Other fall on same level, initial encounter; Y93.89 Activity, other specified; Y92.89 Other specified places as the place of occurrence of the external cause; Y99.8 Other external cause status
CPT/HCPCS: 71045; 73502; 93005; 99284

== ENCOUNTER 2024-09-21 20:57 | Emergency (ER) | payer OTHER, MEDICARE ==
[~2024-09-21] VITALS: Ht 162.6 cm; Wt 63.5 kg
[~2024-09-21 20:57] MED LIST changes: -ACET-2079 PO; -ACET-3859 PO; -CEFD300C3 PO; -CYCL-309 PO; -GABA-529 PO; -HYDR25 PO; +HYDR25TA67 PO; -IRON; -MAGNESIUM; -METO50 PO; -SODI650T PO
--- NOTE | 2024-09-21 22:11 | ERN ---
General Chief Complaint: Mechanical Fall Stated Complaint: FELL, LEFT ARM PAIN, LEFT SIDE CHEST PAIN Time Seen by MD: 21:00 Time Seen by Midlevel: 21:00 Source: patient History of Present Illness Initial Comments Patient is a 39-year-old female with a past medical history of end-stage renal disease presenting to the emergency department after sustaining a fall getting out of her vehicle. On arrival she reports pain to her left shoulder, left elbow, the left side of her chest. No other concerns reported at this time. Allergies: Coded Allergies: Latex, Natural Rubber (Unverified Allergy, Unknown, 02/04/23) Home Meds Active Scripts Ondansetron (Ondansetron Odt) 4 Mg Tab.rapdis, 4 MG PO q8 PRN for nausea, #16 TAB 0 Refills Prov:FINN FLOWERS MD 08/17/24 Loperamide HCl (Imodium 2 mg Cap) 2 Mg Capsule, 2 CAP PO Q6H for loose stool for 5 Days, #40 CAP 0 Refills Prov:FINN FLOWERS MD 08/17/24 Sertraline HCl (Zoloft) 50 Mg Tablet, 50 MG PO DAILY, #30 TAB 0 Refills Prov:NANCY CHENEY MD 07/26/24 Lisinopril (Lisinopril) 40 Mg Tablet, 40 MG PO DAILY, #30 TAB 0 Refills Prov:NANCY CHENEY MD 07/26/24 Carvedilol (Coreg) 12.5 Mg Tablet, 12.5 MG PO BID, #60 TAB 0 Refills Prov:NANCY CHENEY MD 07/26/24 Aspirin (ASPIRIN 81 MG ECTAB) 81 Mg Ectab, 81 MG PO DAILY, #30 TAB.EC 0 Refills Prov:NANCY CHENEY MD 06/29/24 Reported Medications Hydralazine HCl (Hydralazine HCl) 25 Mg Tablet, 25 MG PO TID PRN for INCREASED BLOOD PRESSURE, TAB 08/24/24 Insulin Detemir (Levemir) 100 Unit/Ml Vial, 15 UNIT SQ HS, VIAL 04/30/24 Metoclopramide HCl (Metoclopramide HCl) 10 Mg Tablet, 5 MG PO TIDAC 04/10/24 Atorvastatin Calcium (Atorvastatin Calcium) 40 Mg Tablet, 1 TAB PO HS 04/10/24 Past Medical History Past Medical History: Anxiety, CHF, High Cholesterol, Hypertension, Renal Failure Medical History Other: HX OF GLAUCOMA; HX OF NEUROPATHY Past Surgical History: Other Surgical History Other: DIALYSIS FISTULA TO LEFT UPPER ARM Family History Family History: Negative Social History Social History: Negative Female( History) History: Not Applicable ROS Dictation CONSTITUTIONAL: Negative except for HPI HEAD/FACE: Negative except for HPI EENT: Negative except for HPI RESPIRATORY: Negative except for HPI GASTROINTESTINAL/ABDOMINAL: Negative except for HPI GENITOURINARY: Negative except for HPI MUSCULOSKELETAL: Negative except for HPI INTEGUMENTARY: Negative except for HPI NEUROLOGICAL/PSYCH: Negative except for HPI HEMATOLOGIC/LYMPHATIC: Negative except for HPI All Systems Negative, Except as noted above. 13 point review of systems assessed and all negative except for above. Physical Exam Physical Exam Dictation PHYSICAL EXAM: GENERAL: alert,, awake oriented x 3 HEENT: EOMI, Sclera non icteric, moist mucosa NECK: Supple, no JVD, trachea midline LUNGS: Clear breath sounds bilaterally. No wheezes HEART: Regular rate and rhythm. Normal S1 and S2, without murmurs ABD: Abdomen soft, nontender. Bowel sounds present EXT: No clubbing or cyanosis, NEURO: Alert and oriented to person, follows commands MDM MDM: Patient is a 39-year-old female with a past medical history of end-stage renal disease presenting to the emergency department after sustaining a fall getting out of her vehicle. On arrival she reports pain to her left shoulder, left elbow, the left side of her chest. No other concerns reported at this time. On arrival patient is requesting Dilaudid. On physical examination patient has full range motion of the left shoulder and left elbow. She was screaming during my examination but there are no obvious signs of external trauma. An x-ray of the left shoulder, left elbow and chest do not show any acute abnormalities. The patient will be discharged home with supportive management. Differential diagnosis: Fracture, dislocation, contusion There are no social concerns with this patient. Prescription drug management Prescriptions will include: None Medical management and examination interpretation discussions were had by me with other qualified healthcare professionals as indicated for the patient's care. ED Course Orders Procedure Category Date Status Time Acetaminophen 325 Tab PHA 09/21/24 Complete (Tylenol 325mg Tab 21:30 Elbow Comp 3+Vws Lt RAD 09/21/24 Taken 21:26 Chest 1vw RAD 09/21/24 Taken 21:26 Shoulder Comp 2+Vws Lt RAD 09/21/24 Taken 21:26 Current Medications Medications (Trade) Dose Ordered Sig/Madhavi Route PRN Reason Start Time Stop Time Status Last Admin Dose Admin Acetaminophen (TYLenol 325MG TAB) 650 mg ONCE ONCE PO 09/21/24 21:30 09/21/24 21:31 DC Vital Signs Date Time Temp Pulse Resp B/P (MAP) Pulse Ox O2 Delivery O2 Flow Rate FiO2 09/21/24 21:14 98.8 93 20 152/61 100 Room Air* 0 21 09/21/24 21:01 98.1 95 20 108/65 100 Room Air DX & DISP Disposition: Discharge Departure Impression: Primary Impression: Fall Condition: Stable Additional Instructions: Your x-rays do not show any acute fracture or dislocation. You may take Tylenol at home for pain. Follow up with your primary care doctor in 2-3 days for repeat evaluation. Return to the ER for any new or worsening symptoms Referrals: GUIDO MEDINA MD (PCP) Time of Disposition: 22:08 I have reviewed the case, and I agree with, Diagnosis and Plan I performed the substantive portion of the visit. I have reviewed and personally made and approve the management plan that is documented in the note by myself or the RADHIKA. I acknowledge for responsibility for the patient's man agement plan. OC LIN Sep 21, 2024 22:11
[2024-09-21] MEDS: acetaMINOPHEN 325 MG TAB PO ONE (22:19)
--- NOTE | 2024-09-21 22:23 | HMCIMG ---
SHOULDER COMP 2+VWS LT HISTORY: Status post fall COMPARISON: None TECHNIQUE: 2 images of left shoulder were obtained. FINDINGS: There is no acute displaced fracture or dislocation. Degenerative changes are seen. IMPRESSION: 1. Findings as described above.
--- NOTE | 2024-09-21 22:24 | HMCIMG ---
CHEST 1VW HISTORY: Status post fall COMPARISON: 08/23/2024 FINDINGS: A frontal projection of the chest was obtained. Mild bilateral pulmonary infiltrates are seen may be related to mild pulmonary vascular congestion with possible superimposed pneumonitis. The heart is borderline enlarged. All the lines and tubes are again seen in place. Mild degenerative changes are seen. IMPRESSION: 1. Mild bilateral pulmonary infiltrates are seen may be related to mild pulmonary vascular congestion with possible superimposed pneumonitis.
--- NOTE | 2024-09-21 22:29 | HMCIMG ---
ELBOW COMP 3+VWS LT HISTORY: Status post fall COMPARISON: None TECHNIQUE: 3 images of left elbow were obtained. FINDINGS: There is no acute displaced fracture or dislocation. Surgical deandre are seen in the ulna aspect of left elbow. Degenerative changes are seen. IMPRESSION: 1. Findings as described above.
[2024-09-21 22:33] VITALS: BP 145/66; PULSE 66; RESP 20; TEMP 98.7; O2SAT 100
--- NOTE | 2024-09-21 22:35 | NUR ---
AT THIS TIME PATIENT IS REFUSING TYLENOL 650MG PO ONE TIME DOSE, ALL X RAYS ARE NEGATIVE, ED PA HAS BEEN NOTIFIED, ED PA SPOKE TO PATIENT, NO NEW ORDERS AT THIS TIME, PATIENT WILL BE DISCHARGED HOME
== END 2024-09-21 22:42 | disposition home or self-care (01) ==
LOC: EDH 20:57
DX: M25.512 Pain in left shoulder (principal); M25.522 Pain in left elbow; R07.89 Other chest pain; I13.2 Hypertensive heart and chronic kidney disease with heart failure and with stage 5 chronic kidney disease, or end stage renal disease; I50.9 Heart failure, unspecified; N18.6 End stage renal disease; E78.00 Pure hypercholesterolemia, unspecified; F41.9 Anxiety disorder, unspecified; Z79.82 Long term (current) use of aspirin; Z79.899 Other long term (current) drug therapy; Z91.040 Latex allergy status; Z99.2 Dependence on renal dialysis; V89.9XXA Person injured in unspecified vehicle accident, initial encounter; Y93.89 Activity, other specified; Y92.89 Other specified places as the place of occurrence of the external cause; Y99.8 Other external cause status
CPT/HCPCS: 71045; 73030; 73080; 99284